=== PATIENT | female | born 1965 | race American Indian/Alaskan Native ===

== ENCOUNTER 2017-07-06 12:39 | Emergency (ER) | payer MEDICARE, OTHER ==
[2017-07-06 12:40] VITALS: BMI 25.7
[2017-07-06 12:50] VITALS: TEMP 98.4
[2017-07-06] MEDS ORDERED: Morphine 2 mg/ml ISec IVP STA (13:23)
[2017-07-06 13:50] LABS: BASO # 0.01 K/mm3 (0.0-2.0); BASO % 0.1 % (0.0-3.0); EOS % 0.2 % (1.5-5.0); GRAN # 11.62 (1.4-6.5); GRAN % 89.6 % (50.0-68.0); LYMPH # 0.9 (1.2-3.4); LYMPH % 7.2 % (22.0-35.0); MEAN CELL VOLUME 102.6 fl (80.0-105.0); MEAN CORPUSCULAR HEMOGLOBIN 32.8 pg (25.0-35.0); MEAN CORPUSCULAR HGB CONC 31.9 g/dl (31.0-37.0); MONO # 0.4 (0.1-0.6); MONO % 2.9 % (1.0-6.0); PLATELET COUNT 77 10^3/uL (120.0-450.0); RBC 3.05 10^6/uL (3.5-6.1); RED CELL DISTRIBUTION WIDTH 18.5 % (11.5-14.5)
[2017-07-06 13:59] LABS: ALB/GLOB RATIO 1.2 (1.1-1.8); ALBUMIN 3.5 g/dL (3.0-4.8); ALT/SGPT 31 U/L (7-56); AST/SGOT 27 U/L (14-36); BLOOD UREA NITROGEN 24 mg/dL (7-21); CALCIUM 8.7 mg/dL (8.4-10.5); GFR AFRICAN-AMERICAN > 60; GFR NON-AFRICAN AMERICAN > 60
[2017-07-06 14:23] LABS: INR 1.26 (0.93-1.08); PARTIAL THROMBOPLASTIN TIME 37.7 Seconds (25.1-36.5); PROTHROMBIN TIME 14.5 SECONDS (9.4-12.5)
[2017-07-06] MEDS ORDERED: Potassium Chloride 20 mEq ER Tab PO STA (14:32)
[2017-07-06] MEDS ORDERED: Gadodiamide 287 MG/ML VIAL (15ML) IV ONE (15:41)
[2017-07-06 18:16] VITALS: BP 134/80; PULSE 76; RESP 18; O2SAT 96
--- NOTE | 2017-07-06 18:21 | MRI ---
PROCEDURE: MRI of the cervical spine dated 07/06/2017 HISTORY: Bone metastasis in a patient with history of breast carcinoma with lesion at C5; rule out cord compression. COMPARISON: Correlation made with standard CT scan performed as part of a PET-CT scan dated 07/05/2017. TECHNIQUE: Multiecho multiplanar sequences were performed through the cervical spine with and without the use of intravenous contrast 15 cc of Omniscan injected for this examination. IMPRESSION: Chronic compression deformity of the C5 segment with mild retropulsion of the posterior cortex. The retropulsed fragments results in mild canal narrowing and focal compression of the ventral surface of the thecal sac and spinal cord. This is likely a pathologic fracture due to an underlying treated metastatic lesion. Note however that there does appear to be mild edema and possibly some enhancement within the lateral margin of this segment and probably the posterior elements with some extension into the paraspinal soft tissues suggesting residual disease. Additionally, there is a sclerotic lesion within the C7 segment as well which eft also appears to exhibit faint contrast enhancement along the are lateral margin and possibly within the adjacent soft tissues. No other on evidence of significant cord compression is identified on this exam. Note that these findings were discussed with Dr. Becerra with written down and read back verification.
--- NOTE | 2017-07-06 20:40 | ED PDOC ---
Arrival/HPI - General Chief Complaint: Headache Time Seen by Provider: 07/06/17 12:47 Historian: Patient, Other (Dr. Ella Mahoney) - History of Present Illness Narrative History of Present Illness (Text): 07/06/17 20:30 Patient is a 52 yo female with history of metastatic breast cancer, presents to the Emergency Department after she was noted to have abnormal PET scan as outpatient that revealed "pathologic C5 cervical fracture" as per Dr. Mahoney, her oncologist. The patient states that she has had headaches chronically but over the past week she has began to experience neck pain that radiates to both shoulders. No trauma. No fever. Denies numbness or tingling or weakness to arms or legs. She denies any incontinence of urine or stool. She denies any difficulty swallowing. Denies fevers. Denies visual symptoms. Patient sent by Dr. Mahoney for MRI of neck for further evaluation of abnormal PET scan. Time/Duration: 1 week Past Medical History - Infectious Disease Hx of Infectious Diseases: None - Reproductive Menopause: Yes - Cardiac Hx Hypertension: Yes - Pulmonary Hx Respiratory Disorders: Yes (lung nodule DUE TO LEFT BREAST CA) - Neurological Hx Neurological Disorder: No Other/Comment: AAOX3 - HEENT Hx HEENT Disorder: No - Renal Hx Renal Disorder: No - Endocrine/Metabolic Hx Endocrine Disorders: No - Hematological/Oncological Hx Blood Disorders: Yes Hx Blood Transfusions: Yes Hx Blood Transfusion Reaction: No Hx Cancer: Yes (breast ca stage 4) Hx Chemotherapy: Yes (LAST CHEMO 12/27/16) - Integumentary Hx Dermatological Disorder: Yes Other/Comment: LEFT BREAST MASTECTOMY - Musculoskeletal/Rheumatological Hx Musculoskeletal Disorders: No Hx Falls: No (DENIES) - Gastrointestinal Hx Gastrointestinal Disorders: No Other/Comment: breast ca and chemo - Genitourinary/Gynecological Hx Genitourinary Disorders: No - Psychiatric Hx Psychophysiologic Disorder: No Hx Substance Use: No - Surgical History Hx Breast Biopsy: Yes Hx Mastectomy: Yes (LEFT MASTECTOMY 2011) Hx Vascular Access Device: Yes (INSERTION AND REMOVAL PORTACATH re insertion) - Anesthesia Hx Anesthesia: Yes Hx Anesthesia Reactions: No Hx Malignant Hyperthermia: No Family/Social History Family/Social History: Unknown Family HX Smoking Status: Never Smoked Hx Alcohol Use: No Hx Substance Use: No Allergies/Home Meds Allergies/Adverse Reactions: Allergies No Known Allergies Allergy (Verified 01/10/17 13:22) Home Medications: Home Meds Medication Instructions Recorded Confirmed Famotidine [Pepcid] 20 mg PO BID 07/06/17 07/06/17 Ondansetron [Zofran] 4 mg PO TID 07/06/17 07/06/17 Review of Systems - Review of Systems Constitutional: absent: Fevers Eyes: absent: Vision Changes Respiratory: absent: SOB Cardiovascular: absent: Chest Pain Gastrointestinal: absent: Abdominal Pain Genitourinary Female: absent: Dysuria Musculoskeletal: Neck Pain. absent: Back Pain Skin: absent: Rash Neurological: Headache. absent: Dizziness, Focal Weakness, Speech Changes, Facial Droop, Disequilibrium Endocrine: absent: Polyuria Hemo/Lymphatic: absent: Easy Bleeding Psychiatric: absent: Depression Physical Exam Vital Signs Reviewed: Yes Vital Signs Temp Pulse Resp BP Pulse Ox 07/06/17 18:00 76 18 134/80 96 07/06/17 12:45 98.4 F 77 16 105/76 100 07/06/17 12:40 98.1 F 72 20 107/68 98 Temperature: Afebrile Appearance: Positive for: Uncomfortable Pain Distress: Moderate - Systems Exam Head: Present: Tenderness. No: Ecchymosis, Laceration Pupils: Present: PERRL Extroacular Muscles: Present: EOMI Mouth: Present: Moist Mucous Membranes Pharnyx: No: ERYTHEMA Nose (Internal): Present: Normal Inspection, No Active Bleeding Neck: Present: Normal Range of Motion, MIDLINE TENDERNESS, Paraspinal Tenderness , Trachea Midline. No: Meningeal Signs, Lymphadenopathy Respiratory/Chest: Present: Clear to Auscultation. No: Respiratory Distress Cardiovascular: Present: Regular Rate and Rhythm Abdomen: No: Distention, Peritoneal Signs Back: No: CVA Tenderness Upper Extremity: No: Cyanosis Lower Extremity: Present: NORMAL PULSES, Neurovascularly Intact. No: Edema Neurological: Present: CN II-XII Intact, Speech Normal, Motor Func Grossly Intact, Normal Sensory Function, Normal Cerebellar Funct, Memory Normal Skin: Present: Warm Psychiatric: Present: Alert, Oriented x 3, Normal Insight, Normal Concentration Medical Decision Making ED Course and Treatment: 07/06/17 20:42 Patient was sent by Dr. Ella Mahoney, her oncologist, who reported to me patient with abnormal PET scan. On exam, patient is neurologically intact, complains of neck pain and headache. IV Morphine administered with resolution of headache and neck pain. Patient sent for MRI, and was re-evaluated upon return. She is comfortable, ambulatory, with no weakness or gait disturbance or acute motor/sensory deficits noted. 07/06/17 20:50 MRI of cervical spine reviewed by radiologist, shows chronic compression deformity of the C5 segment with mild retropulsion of the posterior cortex. The retropulsed fragments results in mild canal narrowing and focal compression of the ventral surface of the thecal sac and spinal cord. This is likely a pathologic fracture due to an underlying treated metastatic lesion. Note however that there does appear to be mild edema and possibly some enhancement within the lateral margin of this segment and probably the posterior elements with some extension into the paraspinal soft tissues suggesting residual disease. Additionally, there is a sclerotic lesion within the C7 segment as well which eft also appears to exhibit faint contrast enhancement along the are lateral margin and possibly within the adjacent soft tissues. No other on evidence of significant cord compression is identified on this exam. Patient with abnormal MRI. I discussed MRI results in laymens terms to patient with RN present as witness, I discussed with her admission to the hospital for evaluation by neurosurgery as well as her oncologist, and recommended patient be admitted for abnormal MRI. Patient states that she needs to go home tonight and wishes to come back to ER tomorrow to be admitted instead. I have strongly advised against this as patient 's MRI with significant abnormalities. I have stated to her multiple times abnormal findings and risk of paralysis, , disability, pain. She is able to repeat back these risks with RN witness present. I have advised patient that she will be leaving hospital against medical advice , and she states she understands this and will return tomorrow. Patient signed out AMA. I communicated with her oncologist, Dr. Pena, who is aware of MRI findings. He has also suggested that patient be admitted, although he is aware that patient has signed out against medical advice. 07/06/17 20:50 Leaving Against Medical Advice (AMA): The patient is choosing to leave against medical advice. I have personally explained to the patient that choosing to do so may result in permanent bodily harm or . I have discussed at great length that without further evaluation and monitoring there may be unforeseen circumstances and/or deterioration causing permanent bodily harm or as a result of their choice. The patient is alert, oriented, and shows the mental capacity to make clear decisions regarding the patients health care at this time. The patient continues to wish to leave against medical advice. In light of the patients decision to leave against medical advice, follow-up has been arranged and the patient is aware of the importance to following up as instructed. The patient has been advised that they should return to the emergency room immediately if they change their mind at any time, or if their condition begins to change or worsen in any way. - Lab Interpretations Lab Results: 07/06/17 13:15 07/06/17 13:15 Lab Results 07/06/17 13:15: Sodium 142, Potassium 3.4 L, Chloride 107, Carbon Dioxide 25, Anion Gap 13, BUN 24 H, Creatinine 0.7, Est GFR ( Amer) > 60, Est GFR ( Non-Af Amer) > 60, Random Glucose 92, Calcium 8.7, Total Bilirubin 0.5, AST 27, ALT 31, Alkaline Phosphatase 79, Total Protein 6.4, Albumin 3.5, Globulin 2.9, Albumin/Globulin Ratio 1.2 07/06/17 13:15: PT 14.5 H, INR 1.26 H, APTT 37.7 H 07/06/17 13:15: WBC 13.0 H D, RBC 3.05 L, Hgb 10.0 L, Hct 31.3 L, MCV 102.6, MCH 32.8, MCHC 31.9, RDW 18.5 H, Plt Count 77 L, Gran % 89.6 H, Lymph % (Auto) 7.2 L, [place] % (Auto) 2.9, Eos % (Auto) 0.2 L, Baso % (Auto) 0.1, Gran # 11.62 H , Lymph # 0.9 L, [place] # 0.4, Eos # 0.0, Baso # 0.01 - RAD Interpretation Radiology Orders: 07/06/17 13:14 SPINAL CANAL CERVICAL W/WO RENUKA [MRI] Stat - Medication Orders Current Medication Orders: Discontinued Medications Morphine Sulfate (Morphine) 2 mg IVP STAT STA Stop: 07/06/17 13:24 Last Admin: 07/06/17 13:30 Dose: 2 mg MAR Pain Assessment Document 07/06/17 13:30 SRE (Rec: 07/06/17 13:35 SRE [id number]) Pain Reassessment Is this a pain reassessment? Yes Sleep Is patient sleeping during reassessment? No Presence of Pain Presence of Pain Yes Pain Scale Used Pain Scale Used Numeric Location Left, Right or Bilateral Bilateral Pain Location Body Site Neck Arm Description Description Sharp IVP Administration Document 07/06/17 13:30 SRE (Rec: 07/06/17 13:35 SRE [id number]) Charges for Administration # of IVP Administrations 1 Re-Assess: MAR Pain Assessment Document 07/06/17 14:30 SRE (Rec: 07/06/17 14:36 SRE [id number]) Pain Reassessment Is this a pain reassessment? Yes Sleep Is patient sleeping during reassessment? No Presence of Pain Presence of Pain Yes Pain Scale Used Pain Scale Used Numeric Location Left, Right or Bilateral Bilateral Pain Location Body Site Arm Description Description Intermittent Potassium Chloride (K-Dur 20 Meq Er Tab) 20 meq PO STAT STA Stop: 07/06/17 14:33 Last Admin: 07/06/17 14:41 Dose: 20 meq Disposition/Present on Arrival - Present on Arrival Any Indicators Present on Arrival: No History of DVT/PE: No History of Uncontrolled Diabetes: No Urinary Catheter: No History of Decub. Ulcer: No History Surgical Site Infection Following: None - Disposition Have Diagnosis and Disposition been Completed?: Yes Diagnosis: Abnormal MRI, cervical spine, Metastatic cancer, Neck pain Disposition: AGAINST MEDICAL ADVICE Disposition Time: 18:00 Patient Plan: Discharge Condition: GOOD Referrals: Rupert Lopez MD [Primary Care Provider] - Follow up with primary Forms: Celect (Hungarian)
== END 2017-07-06 18:48 | disposition left against medical advice (07) ==
LOC: ED 12:39
DX: R94.8 Abnormal results of function studies of other organs and systems (principal); C79.51 Secondary malignant neoplasm of bone; M54.2 Cervicalgia

== ENCOUNTER 2017-07-07 11:49 | Inpatient (IN) | payer MEDICARE, OTHER ==
--- NOTE | 2017-07-07 12:15 | ED PDOC ---
Arrival/HPI - General Chief Complaint: Flu-like Symptoms Time Seen by Provider: 07/07/17 12:14 Historian: Patient - History of Present Illness Narrative History of Present Illness (Text): 07/07/17 12:15 52 y/o female, pmh including breast cancer/anemia with thrombocytopenia/htn, nkda, post menopausal, c/o for admission for her pathological fracture on the C5. Pt. has metastatic breast cancer and following with Dr. Mahoney and Dr. Pena , been having neck pain since 01/2017 with no fall or trauma, currently getting chemotherapy for her breast cancer, send by Dr. Mahoney yesterday due for the MRI of the cervical spine which noted that she has chronic compression deformity of the C5 segment with mild retropulsion of the posterior cortex and mild edema ( decadron 10mg IV ordered), advised to be admitted yesterday but she declined so she is here today for the follow up to be admitted. Pt. stated that she has neck pain which radiating to the bilateral upper extremities with no numbness or tingling which this has been started since 01/2017, no weakness either. Pt. has no headache or any other fall or trauma. Pt. has no fever or chills, no chest pain or shortness of breath, no palpitation, no other medical or psychological complaints. Past Medical History - Provider Review Nursing Documentation Reviewed: Yes - Infectious Disease Hx of Infectious Diseases: None - Cardiac Hx Cardiac Disorders: Yes Hx Hypertension: Yes - Pulmonary Hx Respiratory Disorders: Yes (lung nodule DUE TO LEFT BREAST CA) - Neurological Hx Neurological Disorder: No Other/Comment: AAOX3 - HEENT Hx HEENT Disorder: No - Renal Hx Renal Disorder: No - Endocrine/Metabolic Hx Endocrine Disorders: No - Hematological/Oncological Hx Blood Disorders: Yes Hx Blood Transfusions: Yes Hx Blood Transfusion Reaction: No Hx Cancer: Yes (breast ca stage 4) Hx Chemotherapy: Yes (LAST CHEMO 07/04/17) - Integumentary Hx Dermatological Disorder: Yes Other/Comment: LEFT BREAST MASTECTOMY - Musculoskeletal/Rheumatological Hx Musculoskeletal Disorders: No Hx Falls: No (DENIES) - Gastrointestinal Hx Gastrointestinal Disorders: No Other/Comment: breast ca and chemo - Genitourinary/Gynecological Hx Genitourinary Disorders: No - Psychiatric Hx Psychophysiologic Disorder: No Hx Substance Use: No - Surgical History Hx Breast Biopsy: Yes Hx Mastectomy: Yes (LEFT MASTECTOMY 2011) Hx Vascular Access Device: Yes Other/Comment: R sided port. - Anesthesia Hx Anesthesia: Yes Hx Anesthesia Reactions: No Hx Malignant Hyperthermia: No Family/Social History - Physician Review Nursing Documentation Reviewed: Yes Family/Social History: Unknown Family HX Smoking Status: Never Smoked Hx Alcohol Use: No Hx Substance Use: No Allergies/Home Meds Allergies/Adverse Reactions: Allergies No Known Allergies Allergy (Verified 07/07/17 12:00) Home Medications: Home Meds Medication Instructions Recorded Confirmed Famotidine [Pepcid] 20 mg PO BID 07/06/17 07/07/17 Ondansetron [Zofran] 4 mg PO TID 07/06/17 07/07/17 Review of Systems - Review of Systems Constitutional: absent: Fatigue, Fevers Eyes: absent: Vision Changes ENT: absent: Hearing Changes Respiratory: absent: SOB, Cough Cardiovascular: absent: Chest Pain Gastrointestinal: absent: Abdominal Pain, Diarrhea, Nausea, Vomiting Musculoskeletal: Neck Pain. absent: Arthralgias, Back Pain, Myalgias Skin: absent: Rash, Pruritis Neurological: absent: Headache, Dizziness Psychiatric: absent: Anxiety, Depression, Suicidal Ideation Physical Exam Vital Signs Reviewed: Yes Vital Signs Pulse Resp BP Pulse Ox 07/07/17 12:05 69 17 147/81 97 Blood Pressure: Normal Pulse: Regular Respiratory Rate: Normal Appearance: Positive for: Well-Appearing, Non-Toxic, Comfortable Pain Distress: Severe Mental Status: Positive for: Alert and Oriented X 3 - Systems Exam Head: Present: Atraumatic, Normocephalic Pupils: Present: PERRL Extroacular Muscles: Present: EOMI Conjunctiva: Present: Normal Mouth: Present: Moist Mucous Membranes Nose (Internal): Present: Normal Inspection, No Active Bleeding. No: Rhinorrhea Neck: Present: Normal Range of Motion, Trachea Midline. No: Meningeal Signs, MIDLINE TENDERNESS, Paraspinal Tenderness, Lymphadenopathy Respiratory/Chest: Present: Clear to Auscultation, Good Air Exchange. No: Respiratory Distress, Accessory Muscle Use Cardiovascular: Present: Regular Rate and Rhythm, Normal S1, S2. No: Murmurs Abdomen: Present: Normal Bowel Sounds. No: Tenderness, Distention, Peritoneal Signs Back: Present: Normal Inspection Upper Extremity: Present: Normal Inspection, Normal ROM, NORMAL PULSES, Neurovascularly Intact, Capillary Refill < 2s. No: Cyanosis, Edema, Deformity Lower Extremity: Present: Normal Inspection, Normal ROM. No: Edema, Deformity Neurological: Present: GCS=15, CN II-XII Intact, Speech Normal, Motor Func Grossly Intact, Gait Normal, Memory Normal, Other (Bilateral upper and lower extremities with motor 5/5 and full sensation intact, no focal neurological deficits. ) Skin: Present: Warm, Dry, Normal Color. No: Rashes Psychiatric: Present: Alert, Oriented x 3, Normal Insight, Normal Concentration Medical Decision Making ED Course and Treatment: 07/07/17 13:34 -Labs -IV decadrone and morphine -Chest xray -Will need admission for work up -Case discussed with Dr. Roldan and reviewed the MRI cervical together which he suggest no emergent neurosurgery consult indicated at this time but will need inpatient consult. 07/07/17 14:22 -Labs are non-significant compared to previous labs, pancytopenia, K+ 3.2 with potassium chloride 20meq po ordered. -Cervical collar ordered (for supportive care if needed) with decadron 10mg IM ordered -Pt. will need admission for further evaluation and work up for this pathological fracture, paging the hospitalist for admission. 07/07/17 14:38 -Pt. has no focal neurological deficits, other than the pain chronic. -I spoke to the hospitalist Dr. Butt and discussed the case in detail, agreed on the admission and agreed this patient will need neurosurgery routine consult. -Dr. Roldan will put in the admission order as I discussed the case with him. - Lab Interpretations Lab Results: 07/07/17 13:00 07/07/17 13:00 Lab Results 07/07/17 13:34: Urine Color Yellow, Urine Appearance Clear, Urine pH 6.0, Ur Specific O[place]Brien 1.020, Urine Protein Negative, Urine Glucose (UA) Negative, Urine Ketones Trace H, Urine Blood Negative, Urine Nitrate Negative, Urine Bilirubin Negative, Urine Urobilinogen 0.2, Ur Leukocyte Esterase Negative 07/07/17 13:00: WBC 7.3 D, RBC 3.34 L, Hgb 11.0 L, Hct 34.6 L, MCV 103.6, MCH 32.9, MCHC 31.8, RDW 18.6 H, Plt Count 96 L, Gran % 87.2 H, Lymph % (Auto) 10.6 L, [place] % (Auto) 1.4, Eos % (Auto) 0.5 L, Baso % (Auto) 0.3, Gran # 6.35, Lymph # 0.8 L, [place] # 0.1, Eos # 0.0, Baso # 0.02 07/07/17 13:00: Sodium 142, Potassium 3.2 L, Chloride 105, Carbon Dioxide 28, Anion Gap 12, BUN 16, Creatinine 0.6 L, Est GFR ( Amer) > 60, Est GFR ( Non-Af Amer) > 60, Random Glucose 113 H, Calcium 9.7, Total Bilirubin 0.8, AST 34, ALT 30, Alkaline Phosphatase 107, Total Protein 7.7, Albumin 4.3, Globulin 3.3, Albumin/Globulin Ratio 1.3 07/07/17 13:00: PT 14.3 H, INR 1.24 H, APTT 25.7 - RAD Interpretation Radiology Orders: 07/07/17 12:54 CHEST PORTABLE [RAD] Stat no active disease Peoplesoft Consultant: Radiologist - Medication Orders Current Medication Orders: Amlodipine Besylate (Norvasc) 5 mg PO DAILY [facility] Last Admin: 07/08/17 09:28 Dose: 5 mg MAR Pulse and Blood Pressure Document 07/08/17 09:28 VS (Rec: 07/08/17 09:29 VS [id number]) Pulse Pulse Rate (60-90) 70 Blood Pressure Blood Pressure (100/60-150/90) 121/78 Dexamethasone (Decadron Inj) 4 mg IVP Q6H [facility] Last Admin: 07/09/17 05:10 Dose: 4 mg IVP Administration Document 07/09/17 05:10 AJP (Rec: 07/09/17 05:10 AJP [id number]) Charges for Administration # of IVP Administrations 1 Enoxaparin Sodium (Lovenox) 40 mg SC DAILY [facility] PRN Reason: Protocol Last Admin: 07/08/17 09:27 Dose: 40 mg Subcutaneous Administrations Document 07/08/17 09:27 VS (Rec: 07/08/17 09:28 VS [id number]) Injection Site MAR Injection Site Left Abdomen Charges for Administration # of Subcutaneous Administrations 1 Morphine Sulfate (Morphine) 2 mg IVP Q4H PRN PRN Reason: Pain, severe (8-10) Last Admin: 07/08/17 19:12 Dose: 2 mg [facility] Pain Assessment Document 07/08/17 19:12 VS (Rec: 07/08/17 19:13 VS [id number]) Pain Reassessment Is this a pain reassessment? No Pain Scale Used Pain Scale Used Numeric Location Pain Location Body Site Neck Description Description Constant Intensity of Pain at present 9 Pain Behavior Facial Grimacing Aggravating Factors None Alleviating Factors/Management Medication Techniques IVP Administration Document 07/08/17 19:12 VS (Rec: 07/08/17 19:13 VS [id number]) Charges for Administration # of IVP Administrations 1 Ondansetron HCl (Zofran Inj) 4 mg IVP Q6H PRN PRN Reason: Nausea/Vomiting Pantoprazole Sodium (Protonix Ec Tab) 40 mg PO 0600 DONG Last Admin: 07/09/17 05:12 Dose: 40 mg Discontinued Medications Dexamethasone (Decadron Inj) 10 mg IVP ONCE ONE Stop: 07/07/17 13:29 Last Admin: 07/07/17 13:44 Dose: 10 mg IVP Administration Document 07/07/17 13:44 EQ (Rec: 07/07/17 13:44 EQ [facility] [id number]) Charges for Administration # of IVP Administrations 1 Morphine Sulfate (Morphine) 4 mg IVP STAT STA Stop: 07/07/17 13:34 Last Admin: 07/07/17 13:44 Dose: 4 mg [facility] Pain Assessment Document 07/07/17 13:44 EQ (Rec: 07/07/17 13:44 EQ [facility] [id number]) Pain Reassessment Is this a pain reassessment? No Sleep Is patient sleeping during reassessment? No Presence of Pain Presence of Pain Yes IVP Administration Document 07/07/17 13:44 EQ (Rec: 07/07/17 13:44 EQ [facility] [id number]) Charges for Administration # of IVP Administrations 1 Re-Assess: MAR Pain Assessment Document 07/07/17 14:44 VS (Rec: 07/07/17 16:35 VS [id number]) Pain Reassessment Is this a pain reassessment? Yes Sleep Is patient sleeping during reassessment? No Presence of Pain Presence of Pain No Pain Scale Used Pain Scale Used Numeric Potassium Chloride (K-Dur 20 Meq Er Tab) 20 meq PO STAT STA Stop: 07/07/17 13:37 Last Admin: 07/07/17 15:45 Dose: 20 meq Potassium Chloride (Potassium Chloride Oral Soln) 40 meq PO STAT STA Stop: 07/07/17 16:08 Last Admin: 07/07/17 17:04 Dose: 40 meq - PA / PERIANESTHESIA RN / Resident Statement MD/DO has reviewed & agrees with the documentation as recorded. Disposition/Present on Arrival - Present on Arrival Any Indicators Present on Arrival: No History of DVT/PE: No History of Uncontrolled Diabetes: No Urinary Catheter: No History of Decub. Ulcer: No History Surgical Site Infection Following: None - Disposition Have Diagnosis and Disposition been Completed?: Yes Diagnosis: Pancytopenia, Metastatic cancer, Pathological fracture Disposition: HOSPITALIZED Disposition Time: 13:36 Patient Plan: Admission Patient Problems: Current Active Problems Problem Status Onset Pancytopenia Acute Metastatic cancer Acute Pathological fracture Acute Condition: STABLE
[2017-07-07 13:13] LABS: BASO # 0.02 K/mm3 (0.0-2.0); BASO % 0.3 % (0.0-3.0); EOS % 0.5 % (1.5-5.0); GRAN # 6.35 (1.4-6.5); GRAN % 87.2 % (50.0-68.0); LYMPH # 0.8 (1.2-3.4); LYMPH % 10.6 % (22.0-35.0); MEAN CELL VOLUME 103.6 fl (80.0-105.0); MEAN CORPUSCULAR HEMOGLOBIN 32.9 pg (25.0-35.0); MEAN CORPUSCULAR HGB CONC 31.8 g/dl (31.0-37.0); MONO # 0.1 (0.1-0.6); MONO % 1.4 % (1.0-6.0); PLATELET COUNT 96 10^3/uL (120.0-450.0); RBC 3.34 10^6/uL (3.5-6.1); RED CELL DISTRIBUTION WIDTH 18.6 % (11.5-14.5); WHITE BLOOD COUNT 7.3 10^3/ul (4.5-11.0)
[2017-07-07 13:24] LABS: INR 1.24 (0.93-1.08); PARTIAL THROMBOPLASTIN TIME 25.7 Seconds (25.1-36.5); PROTHROMBIN TIME 14.3 SECONDS (9.4-12.5)
[2017-07-07] MEDS ORDERED: Morphine 4 mg/ml ISec IVP STA (13:33)
[2017-07-07 13:35] LABS: ALB/GLOB RATIO 1.3 (1.1-1.8); ALBUMIN 4.3 g/dL (3.0-4.8); ALT/SGPT 30 U/L (7-56); AST/SGOT 34 U/L (14-36); BLOOD UREA NITROGEN 16 mg/dL (7-21); CALCIUM 9.7 mg/dL (8.4-10.5); GFR AFRICAN-AMERICAN > 60; GFR NON-AFRICAN AMERICAN > 60
[2017-07-07] MEDS ORDERED: Potassium Chloride 20 mEq ER Tab PO STA (13:36)
[2017-07-07 13:37] LABS: URINE BILIRUBIN NEGATIVE (NEGATIVE); URINE BLOOD NEGATIVE (NEGATIVE); URINE GLUCOSE (UA) NEGATIVE (NEGATIVE); URINE LEUKOCYTE ESTERASE NEGATIVE Leu/uL (NEGATIVE); URINE NITRATE NEGATIVE (NEGATIVE); URINE PROTEIN NEGATIVE mg/dL (<30 mg/dL); URINE UROBILINOGEN 0.2 E.U./dL (<1 E.U./dL)
[2017-07-07 13:54] LABS: URINE APPEARANCE CLEAR (CLEAR); URINE COLOR YELLOW (YELLOW)
--- NOTE | 2017-07-07 15:28 | RAD ---
HISTORY: medical clearance COMPARISON: 10/16/2013 FINDINGS: LUNGS: No active pulmonary disease. PLEURA: No significant pleural effusion identified, no pneumothorax apparent. CARDIOVASCULAR: Normal. OSSEOUS STRUCTURES: No significant abnormalities. VISUALIZED UPPER ABDOMEN: Normal. OTHER FINDINGS: Right-sided Port-A-Cath IMPRESSION: No active disease.
[2017-07-07] MEDS ORDERED: Potassium Chloride 40 mEq/30 ml LIQ UD PO STA (16:07)
--- NOTE | 2017-07-07 16:28 | CP.PCM.HP ---
<Milo Wagner - Last Filed: 07/07/17 16:29> History of Present Illness - History of Present Illness History of Present Illness: CC: Neck pain / Abnormal Imaging 52 y/o female with pmh of mets breast cancer, htn presents following recs from her rad/onc doctor for admission for abnormal imaging of MRI. Pt states that she has metastatic breast cancer and has been following with Dr. Mahoney and Dr. Pena for chemo and radiation. Last chemo was 3 days and and radiation was aprox 6 weeks ago. Pt has been complain of neck pain with radiation to her b/l arms for the past few months but denies any pain right now. Denies any weakness or loss of sensation. Pt came to the ED yesterday and had an MRI done chronic compression deformity of the C5 segment with mild retropulsion of the posterior cortex. Pt ended up signing out AMA. Pt currently denies any neck pain. Pt does complain of back pain that is 8/10 in severity non radiating. Denies any recent falls, or loss of consciousness. 12 Point ROS performed and negative other than stated above. PMH: mets breast ca (2011), HTN PSH: L mastectomy Med: refer to [facility] ALL: NKA SH: denies any etoh, smoking, drugs FH: Denies Present on Admission - Present on Admission Any Indicators Present on Admission: No Review of Systems - Review of Systems All systems: reviewed and no additional remarkable complaints except Past Patient History - Infectious Disease Hx of Infectious Diseases: None - Past Medical History & Family History Past Medical History?: Yes - Past Social History Smoking Status: Never Smoked - CARDIAC Hx Cardiac Disorders: Yes Hx Hypertension: Yes - PULMONARY Hx Respiratory Disorders: Yes (lung nodule DUE TO LEFT BREAST CA) - NEUROLOGICAL Hx Neurological Disorder: No Other/Comment: AAOX3 - HEENT Hx HEENT Problems: No - RENAL Hx Chronic Kidney Disease: No - ENDOCRINE/METABOLIC Hx Endocrine Disorders: No - HEMATOLOGICAL/ONCOLOGICAL Hx Blood Disorders: Yes Hx Blood Transfusions: Yes Hx Blood Transfusion Reaction: No Hx Cancer: Yes (breast ca stage 4) Hx Chemotherapy: Yes (LAST CHEMO 07/04/17) - INTEGUMENTARY Hx Dermatological Problems: Yes Other/Comment: LEFT BREAST MASTECTOMY - MUSCULOSKELETAL/RHEUMATOLOGICAL Hx Musculoskeletal Disorders: No Hx Falls: No (DENIES) - GASTROINTESTINAL Hx Gastrointestinal Disorders: No Other/Comment: breast ca and chemo - GENITOURINARY/GYNECOLOGICAL Hx Genitourinary Disorders: No - PSYCHIATRIC Hx Psychophysiologic Disorder: No Hx Substance Use: No - SURGICAL HISTORY Hx Breast Biopsy: Yes Hx Mastectomy: Yes (LEFT MASTECTOMY 2011) Hx Vascular Access Device: Yes Other/Comment: R sided port. - ANESTHESIA Hx Anesthesia: Yes Hx Anesthesia Reactions: No Hx Malignant Hyperthermia: No Meds Allergies/Adverse Reactions: Allergies Allergy/AdvReac Type Severity Reaction Status Date / Time No Known Allergies Allergy Verified 07/07/17 12:00 Physical Exam - Constitutional Appears: No Acute Distress - Head Exam Head Exam: ATRAUMATIC, NORMOCEPHALIC - Eye Exam Eye Exam: EOMI Pupil Exam: NORMAL ACCOMODATION - ENT Exam ENT Exam: Mucous Membranes Moist - Neck Exam Neck exam: Positive for: Full Rom, Normal Inspection. Negative for: Tenderness - Respiratory Exam Respiratory Exam: Clear to Auscultation Bilateral. absent: Wheezes - Cardiovascular Exam Cardiovascular Exam: REGULAR RHYTHM, RRR, +S1, +S2 - GI/Abdominal Exam GI & Abdominal Exam: Normal Bowel Sounds, Soft - Extremities Exam Extremities exam: Negative for: calf tenderness, pedal edema Additional comments: Upper Ext: FROM, Sensation intact - Back Exam Back exam: absent: paraspinal tenderness, vertebral tenderness - Neurological Exam Neurological exam: Alert, Oriented x3 - Skin Skin Exam: Dry, Intact, Warm Results - Vital Signs Recent Vital Signs: Last Vital Signs Temp Pulse 68 07/07/17 15:46 Resp 18 07/07/17 15:46 BP 143/80 07/07/17 15:46 Pulse Ox 100 07/07/17 15:46 - Labs Result Diagrams: 07/07/17 13:00 07/07/17 13:00 Assessment & Plan - Assessment and Plan (Free Text) Assessment: 52 y/o female with pmh of mets breast cancer, htn presents following recs from her rad/onc doctor for admission for Abnormal imaging of neck MRI - chronic compression deformity of the C5 segment with mild retropulsion of the posterior cortex with mild edema. The retropulsed fragments results in mild canal narrowing and focal compression of the ventral surface of the thecal sac and spinal cord. 1. Mets breast ca with pathologic fx of C5 - MRI and Pet CT scan reviewed - Pain control with Morphine - Decadrom 4mg Q6H - Zofran for nausea - Heme/onc - Dr Pena Consulted for recs - Rad/Onc - Dr Mahoney Consulted for recs - Neuro sx consulted for recs - Heart healthy diet - AM labs - Cervical collar encouraged - Explained to the pt in detail to no have any sudden movement of her neck and encourgaed her to wear the neck brace. Explained in length of any new symptoms to contact nurse and physician right away. Pt verbalized understanding. 2. HTN - Cont home Amlodipine 3. GI/DVT ppx - Protonix and Lovenox sc Pt was seen, reviewed and discussed in detail with Dr Butt <Gloria Butt - Last Filed: 07/08/17 11:50> Results - Vital Signs Recent Vital Signs: Last Vital Signs Temp 97.6 F 07/08/17 07:47 Pulse 70 07/08/17 09:28 Resp 18 07/08/17 07:47 BP 121/78 07/08/17 09:28 Pulse Ox 100 07/08/17 07:47 - Labs Result Diagrams: 07/07/17 13:00 07/07/17 13:00 Attending/Attestation - Attestation I have personally seen and examined this patient.: Yes I have fully participated in the care of the patient.: Yes I have reviewed all pertinent clinical information: Yes Notes (Text): 07/08/17 11:45 Attending note; Patient seen and examined with the resident. Patient is a 52-year-old female with past medical history of metastatic breast cancer, hypertension is admitted with neck pain. The patient had chronic neck pain since January. Recent MRI showed compression fraction of C5. Recent PET scan showed metastatic disease including brain. The patient got palliative radiation to the hip and shoulder. Currently admitted for pain management and IV Decadron. Currently no arm weakness or numbness. But patient has generalized pain. Also complaining of mild neck pain. Pain is adequately treated with IV morphine now. Follow-up with radiation oncology Dr. Mahoney for the need for palliative radiation . Follow-up with oncology Dr. Pena. Neurosurgery evaluation requested. We will follow up with intervention radiology. The diagnosis and treatment option explained to the patient in detail.
[2017-07-07] MEDS: Dexamethasone 4 mg/1 ml IVP SCH ×2 (17:03→22:05)
[2017-07-07] MEDS: Enoxaparin 40 mg Syringe SC SCH (17:04)
[2017-07-07] MEDS: Morphine 2 mg/ml ISec IVP PRN ×2 (17:36→22:04)
[2017-07-07 17:41] VITALS: BMI 27.1
[2017-07-07] MEDS ORDERED: Influenza Vaccine 60 mcg/0.5 mL SYR (4YR UP) IM ONE (17:41)
--- NOTE | 2017-07-07 22:36 | CP.PCM.CON ---
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 The patient was initially diagnosed with a localized breast cancer in 2011 but unfortunately was found to have lung metastasis in 2013. She had been seen in the office recently and complaining of worsening neck pain which led to her recent imaging. She denies weakness and paresthesias in her extremities. Past medical history: Stage IV breast cancer Past surgical history: Portacath placement Family history: Denies hematologic and oncologic problems Social history: Denies tobacco, alcohol, and illicit drug use. Allergies: NKA Review of systems: All remaining review of systems including HEENT, cardiovascular, respiratory, gastrointestinal, genitourinary, musculoskeletal, dermatologic, neurologic, and psychiatric are negative unless mentioned in the HPI. Past Patient History - Infectious Disease Hx of Infectious Diseases: None - Past Medical History & Family History Past Medical History?: Yes - Past Social History Smoking Status: Never Smoked - CARDIAC Hx Cardiac Disorders: Yes Hx Hypertension: Yes - PULMONARY Hx Respiratory Disorders: Yes Other/Comment: lung bx r lower lobe, right lower lobectomy 04/07/2014 - NEUROLOGICAL Other/Comment: AAOX3 - HEENT Hx HEENT Problems: No - RENAL Hx Chronic Kidney Disease: No - ENDOCRINE/METABOLIC Hx Endocrine Disorders: No - HEMATOLOGICAL/ONCOLOGICAL Hx Blood Disorders: Yes (thrombocytopenia/neutropenia) Hx Anemia: Yes (blood transfusions) Hx Cancer: Yes (breast ca stage 4) Hx Chemotherapy: Yes (LAST CHEMO 07/04/17) Other/Comment: pt dx with left breast ca 2010 had left mastectomy 06/2011 has had chemo on and off since 2011 last chemo 07/04/17, pt had radiation in january 2017 and mar 2017. pt dx with r lunc ca 2013 and recently bone mets lesion on c5 recent mri show brain lesions - INTEGUMENTARY Hx Dermatological Problems: Yes Other/Comment: LEFT BREAST MASTECTOMY - MUSCULOSKELETAL/RHEUMATOLOGICAL Hx Falls: No - GASTROINTESTINAL Hx Gastrointestinal Disorders: Yes (weight loss) Other/Comment: breast ca and chemo - GENITOURINARY/GYNECOLOGICAL Hx Genitourinary Disorders: Yes - PSYCHIATRIC Hx Substance Use: No - SURGICAL HISTORY Hx Mastectomy: Yes (LEFT MASTECTOMY 2011) Other/Comment: R sided port, left breast mastectomy, r lung bx, right lower lobe lobectomy 04/07/2014 - ANESTHESIA Hx Anesthesia: Yes Hx Anesthesia Reactions: No Hx Malignant Hyperthermia: No Meds Allergies/Adverse Reactions: Allergies Allergy/AdvReac Type Severity Reaction Status Date / Time No Known Allergies Allergy Verified 07/07/17 12:00 - Medications Medications: Current Medications Amlodipine Besylate (Norvasc) 5 mg PO DAILY [facility] Last Admin: 07/07/17 17:04 Dose: 5 mg Dexamethasone (Decadron Inj) 4 mg IVP Q6H [facility] Last Admin: 07/07/17 22:05 Dose: 4 mg Enoxaparin Sodium (Lovenox) 40 mg SC DAILY [facility] PRN Reason: Protocol Last Admin: 07/07/17 17:04 Dose: 40 mg Morphine Sulfate (Morphine) 2 mg IVP Q4H PRN PRN Reason: Pain, severe (8-10) Last Admin: 07/07/17 22:04 Dose: 2 mg Ondansetron HCl (Zofran Inj) 4 mg IVP Q6H PRN PRN Reason: Nausea/Vomiting Pantoprazole Sodium (Protonix Ec Tab) 40 mg PO 0600 [facility] Results - Vital Signs Recent Vital Signs: Last Vital Signs Temp 97.8 F 07/07/17 17:31 Pulse 58 L 07/07/17 17:31 Resp 18 07/07/17 17:31 BP 127/83 07/07/17 17:31 Pulse Ox 98 07/07/17 16:00 - Labs Result Diagrams: 07/07/17 13:00 07/07/17 13:00 Assessment & Plan (1) Pathological fracture Assessment and Plan: recommend neurosurgical evaluation ? need for surgery recommend IR evaluation ?kyphoplasty will discuss with rad onc Dr. Mahoney if would benefit from palliative radiotherapy outpatient bisphosphonate Status: Acute (2) Thrombocytopenia Assessment and Plan: secondary to recent chemotherapy Status: Acute (3) Anemia Assessment and Plan: chronic disease and recent chemo Status: Acute (4) Breast cancer Assessment and Plan: lung, brain, bone, lymph node metastasis outpatient treatment Thank you for this interesting consult. Status: Chronic
[2017-07-08] MEDS: Dexamethasone 4 mg/1 ml IVP SCH ×4 (04:22→22:08)
[2017-07-08] MEDS: Pantoprazole 40 mg EC Tab PO SCH (05:33)
--- NOTE | 2017-07-08 09:17 | CP.PCM.CON ---
History of Present Illness - History of Present Illness History of Present Illness: Ms Kennedy is a 52 year old female who is well known to our department. She recently had palliative radiation to the hip and right shoulder. More recently , she had increasing pain of the neck as well as shoulders. She had a CT/PET scan which was significant for a compression fracture at C5 as well as a sclerotic focus at C7. There were other metastases on the PET, however it was felt that the C5 lesion was the etiology of her symptoms. Given the compression fracture, we spoke on Sunday with Dr Pena. We sent her to the emergency room for a MRI which she had that confirmed the fracture. Review of Systems - Musculoskeletal Additional comments: neck and shoulder pain Past Patient History - Infectious Disease Hx of Infectious Diseases: None - Past Medical History & Family History Past Medical History?: Yes - Past Social History Smoking Status: Never Smoked - CARDIAC Hx Cardiac Disorders: Yes Hx Hypertension: Yes - PULMONARY Hx Respiratory Disorders: Yes Other/Comment: lung bx r lower lobe, right lower lobectomy 04/07/2014 - NEUROLOGICAL Other/Comment: AAOX3 - HEENT Hx HEENT Problems: No - RENAL Hx Chronic Kidney Disease: No - ENDOCRINE/METABOLIC Hx Endocrine Disorders: No - HEMATOLOGICAL/ONCOLOGICAL Hx Blood Disorders: Yes (thrombocytopenia/neutropenia) Hx Anemia: Yes (blood transfusions) Hx Cancer: Yes (breast ca stage 4) Hx Chemotherapy: Yes (LAST CHEMO 07/04/17) Other/Comment: pt dx with left breast ca 2010 had left mastectomy 06/2011 has had chemo on and off since 2011 last chemo 07/04/17, pt had radiation in january 2017 and mar 2017. pt dx with r lunc ca 2013 and recently bone mets lesion on c5 recent mri show brain lesions - INTEGUMENTARY Hx Dermatological Problems: Yes Other/Comment: LEFT BREAST MASTECTOMY - MUSCULOSKELETAL/RHEUMATOLOGICAL Hx Falls: No - GASTROINTESTINAL Hx Gastrointestinal Disorders: Yes (weight loss) Other/Comment: breast ca and chemo - GENITOURINARY/GYNECOLOGICAL Hx Genitourinary Disorders: Yes - PSYCHIATRIC Hx Substance Use: No - SURGICAL HISTORY Hx Mastectomy: Yes (LEFT MASTECTOMY 2011) Other/Comment: R sided port, left breast mastectomy, r lung bx, right lower lobe lobectomy 04/07/2014 - ANESTHESIA Hx Anesthesia: Yes Hx Anesthesia Reactions: No Hx Malignant Hyperthermia: No Meds Allergies/Adverse Reactions: Allergies Allergy/AdvReac Type Severity Reaction Status Date / Time No Known Allergies Allergy Verified 07/07/17 12:00 - Medications Medications: Current Medications Amlodipine Besylate (Norvasc) 5 mg PO DAILY [facility] Last Admin: 07/07/17 17:04 Dose: 5 mg Dexamethasone (Decadron Inj) 4 mg IVP Q6H [facility] Last Admin: 07/08/17 04:22 Dose: 4 mg Enoxaparin Sodium (Lovenox) 40 mg SC DAILY [facility] PRN Reason: Protocol Last Admin: 07/07/17 17:04 Dose: 40 mg Morphine Sulfate (Morphine) 2 mg IVP Q4H PRN PRN Reason: Pain, severe (8-10) Last Admin: 07/07/17 22:04 Dose: 2 mg Ondansetron HCl (Zofran Inj) 4 mg IVP Q6H PRN PRN Reason: Nausea/Vomiting Pantoprazole Sodium (Protonix Ec Tab) 40 mg PO 0600 [facility] Last Admin: 07/08/17 05:33 Dose: 40 mg Results - Vital Signs Recent Vital Signs: Last Vital Signs Temp 97.6 F 07/08/17 07:47 Pulse 54 L 07/08/17 07:47 Resp 18 07/08/17 07:47 BP 106/67 07/08/17 07:47 Pulse Ox 100 07/08/17 07:47 - Labs Result Diagrams: 07/07/17 13:00 07/07/17 13:00 Assessment & Plan - Assessment and Plan (Free Text) Assessment: Ms Kennedy is a 52 year old female with metastatic breast cancer and new neck/ shoulder pain. Her recent PET as well as MRI of the C spine showed a pathologic fracture at C5. We had reached out to Dr Emanuel Mayberry about kyphoplasty. He stated that lesions above T5 were very tricky, and that at select tertiary centers, they may consider that, however this would not something that they would do in [place]. We had spoke to Angela about palliative radiation therapy for the C5 lesion as well.
[2017-07-08] MEDS: Enoxaparin 40 mg Syringe SC SCH (09:27)
[2017-07-08] MEDS: Morphine 2 mg/ml ISec IVP PRN ×3 (09:28→19:12)
--- NOTE | 2017-07-08 10:33 | CP.PCM.PN ---
<Milo Wagner - Last Filed: 07/08/17 10:57> Subjective - Date & Time of Evaluation Date of Evaluation: 07/08/17 Time of Evaluation: 10:00 - Subjective Subjective: IM progress note: Pt seen and examined at bedside. No acute events overnight. Pt c/o of minimal neck pain and some back pain. No other complaints. 12 Point ROS performed and negative other than stated above. Objective - Vital Signs/Intake and Output Vital Signs (last 24 hours): Temp Pulse Resp BP Pulse Ox 97.6 F 70 18 121/78 100 07/08/17 07:47 07/08/17 09:28 07/08/17 07:47 07/08/17 09:28 07/08/17 07:47 - Medications Medications: Current Medications Amlodipine Besylate (Norvasc) 5 mg PO DAILY [facility] Last Admin: 07/08/17 09:28 Dose: 5 mg Dexamethasone (Decadron Inj) 4 mg IVP Q6H [facility] Last Admin: 07/08/17 09:29 Dose: 4 mg Enoxaparin Sodium (Lovenox) 40 mg SC DAILY [facility] PRN Reason: Protocol Last Admin: 07/08/17 09:27 Dose: 40 mg Morphine Sulfate (Morphine) 2 mg IVP Q4H PRN PRN Reason: Pain, severe (8-10) Last Admin: 07/08/17 09:28 Dose: 2 mg Ondansetron HCl (Zofran Inj) 4 mg IVP Q6H PRN PRN Reason: Nausea/Vomiting Pantoprazole Sodium (Protonix Ec Tab) 40 mg PO 0600 [facility] Last Admin: 07/08/17 05:33 Dose: 40 mg - Labs Labs: PT 14.3 SECONDS (9.4-12.5) H 07/07/17 13:00 INR 1.24 (0.93-1.08) H 07/07/17 13:00 APTT 25.7 Seconds (25.1-36.5) 07/07/17 13:00 - Constitutional Appears: No Acute Distress - Head Exam Head Exam: ATRAUMATIC, NORMOCEPHALIC - Eye Exam Eye Exam: EOMI, PERRL - ENT Exam ENT Exam: Mucous Membranes Moist - Respiratory Exam Respiratory Exam: Clear to Ausculation Bilateral. absent: Wheezes - Cardiovascular Exam Cardiovascular Exam: REGULAR RHYTHM, RRR, +S1, +S2 - GI/Abdominal Exam GI & Abdominal Exam: Soft. absent: Tenderness - Extremities Exam Extremities Exam: absent: Calf Tenderness, Pedal Edema - Neurological Exam Neurological Exam: Alert, Awake, Oriented x3 Neuro motor strength exam: Left Upper Extremity: 5, Right Upper Extremity: 5 - Psychiatric Exam Psychiatric exam: Normal Affect, Normal Mood - Skin Skin Exam: Dry, Intact, Warm Assessment and Plan - Assessment and Plan (Free Text) Assessment: 52 y/o female with pmh of mets breast cancer, htn presents following recs from her rad/onc doctor for admission for Abnormal imaging of neck MRI - with pathologic fx of C5. 1. Mets breast ca with pathologic fx of C5 - MRI and Pet CT scan reviewed - Pain control with Morphine - Decadrom 4mg Q6H - Zofran for nausea - Heme/onc - Dr Pena Consulted for recs - recommend neurosurgical evaluation, IR evaluation ?kyphoplasty, Dr. Mahoney if would benefit from palliative radiotherapy - Rad/Onc - Dr Mahoney Consulted for recs "reached out to Dr Emanuel Mayberry about kyphoplasty. He stated that lesions above T5 were very tricky, and that at select tertiary centers, they may consider that. however this would not something that they would do in [place]" - IR consult for recs - Neuro sx consulted for recs - Heart healthy diet - AM labs - Explained to the pt in detail to no have any sudden movement of her neck and encourgaed her to wear the neck brace. Explained in length of any new symptoms to contact nurse and physician right away. Pt verbalized understanding. 2. HTN - Cont home Amlodipine 3. GI/DVT ppx - Protonix and Lovenox sc Pt was seen, reviewed and discussed in detail with Dr Butt <Gloria Butt - Last Filed: 07/08/17 13:15> Objective - Vital Signs/Intake and Output Vital Signs (last 24 hours): Temp Pulse Resp BP Pulse Ox 97.6 F 70 18 121/78 100 07/08/17 07:47 07/08/17 09:28 07/08/17 07:47 07/08/17 09:28 07/08/17 07:47 - Medications Medications: Current Medications Amlodipine Besylate (Norvasc) 5 mg PO DAILY [facility] Last Admin: 07/08/17 09:28 Dose: 5 mg Dexamethasone (Decadron Inj) 4 mg IVP Q6H [facility] Last Admin: 07/08/17 09:29 Dose: 4 mg Enoxaparin Sodium (Lovenox) 40 mg SC DAILY [facility] PRN Reason: Protocol Last Admin: 07/08/17 09:27 Dose: 40 mg Morphine Sulfate (Morphine) 2 mg IVP Q4H PRN PRN Reason: Pain, severe (8-10) Last Admin: 07/08/17 09:28 Dose: 2 mg Ondansetron HCl (Zofran Inj) 4 mg IVP Q6H PRN PRN Reason: Nausea/Vomiting Pantoprazole Sodium (Protonix Ec Tab) 40 mg PO 0600 [facility] Last Admin: 07/08/17 05:33 Dose: 40 mg - Labs Labs: PT 14.3 SECONDS (9.4-12.5) H 07/07/17 13:00 INR 1.24 (0.93-1.08) H 07/07/17 13:00 APTT 25.7 Seconds (25.1-36.5) 07/07/17 13:00 Attending/Attestation - Attestation I have personally seen and examined this patient.: Yes I have fully participated in the care of the patient.: Yes I have reviewed all pertinent clinical information, including history, physical exam and plan: Yes Notes (Text): 07/08/17 13:07 Attending note; Patient seen and examined with resident. Patient is a 52-year-old female with past medical history of metastatic breast cancer, hypertension is admitted with neck pain. The patient had chronic neck pain since January. Recent MRI showed compression fraction of C5. Recent PET scan showed new metastatic disease in scapula. The patient got palliative radiation to the hip and shoulder. Currently admitted for pain management and IV Decadron. Currently no arm weakness or numbness. But patient has generalized pain. Also complaining of mild neck pain. Pain is adequately treated with IV morphine now. Radiation oncology consult with Dr. Mahoney appreciated. Seen by oncology Dr. Pena. Neurosurgery evaluation appreciated. CT cervical spine ordered . The diagnosis and treatment option explained to the patient in detail.
--- NOTE | 2017-07-08 12:59 | CP.PCM.CON ---
History of Present Illness - History of Present Illness History of Present Illness: dictated CT c spine ordered to evaluate bone integrity/stability of spine Past Patient History - Infectious Disease Hx of Infectious Diseases: None - Past Medical History & Family History Past Medical History?: Yes - Past Social History Smoking Status: Never Smoked - CARDIAC Hx Cardiac Disorders: Yes Hx Hypertension: Yes - PULMONARY Hx Respiratory Disorders: Yes Other/Comment: lung bx r lower lobe, right lower lobectomy 04/07/2014 - NEUROLOGICAL Other/Comment: AAOX3 - HEENT Hx HEENT Problems: No - RENAL Hx Chronic Kidney Disease: No - ENDOCRINE/METABOLIC Hx Endocrine Disorders: No - HEMATOLOGICAL/ONCOLOGICAL Hx Blood Disorders: Yes (thrombocytopenia/neutropenia) Hx Anemia: Yes (blood transfusions) Hx Cancer: Yes (breast ca stage 4) Hx Chemotherapy: Yes (LAST CHEMO 07/04/17) Other/Comment: pt dx with left breast ca 2010 had left mastectomy 06/2011 has had chemo on and off since 2011 last chemo 07/04/17, pt had radiation in january 2017 and mar 2017. pt dx with r lunc ca 2013 and recently bone mets lesion on c5 recent mri show brain lesions - INTEGUMENTARY Hx Dermatological Problems: Yes Other/Comment: LEFT BREAST MASTECTOMY - MUSCULOSKELETAL/RHEUMATOLOGICAL Hx Falls: No - GASTROINTESTINAL Hx Gastrointestinal Disorders: Yes (weight loss) Other/Comment: breast ca and chemo - GENITOURINARY/GYNECOLOGICAL Hx Genitourinary Disorders: Yes - PSYCHIATRIC Hx Substance Use: No - SURGICAL HISTORY Hx Mastectomy: Yes (LEFT MASTECTOMY 2011) Other/Comment: R sided port, left breast mastectomy, r lung bx, right lower lobe lobectomy 04/07/2014 - ANESTHESIA Hx Anesthesia: Yes Hx Anesthesia Reactions: No Hx Malignant Hyperthermia: No Meds Allergies/Adverse Reactions: Allergies Allergy/AdvReac Type Severity Reaction Status Date / Time No Known Allergies Allergy Verified 07/07/17 12:00 - Medications Medications: Current Medications Amlodipine Besylate (Norvasc) 5 mg PO DAILY [facility] Last Admin: 07/08/17 09:28 Dose: 5 mg Dexamethasone (Decadron Inj) 4 mg IVP Q6H [facility] Last Admin: 07/08/17 09:29 Dose: 4 mg Enoxaparin Sodium (Lovenox) 40 mg SC DAILY [facility] PRN Reason: Protocol Last Admin: 07/08/17 09:27 Dose: 40 mg Morphine Sulfate (Morphine) 2 mg IVP Q4H PRN PRN Reason: Pain, severe (8-10) Last Admin: 07/08/17 09:28 Dose: 2 mg Ondansetron HCl (Zofran Inj) 4 mg IVP Q6H PRN PRN Reason: Nausea/Vomiting Pantoprazole Sodium (Protonix Ec Tab) 40 mg PO 0600 [facility] Last Admin: 07/08/17 05:33 Dose: 40 mg Results - Vital Signs Recent Vital Signs: Last Vital Signs Temp 97.6 F 07/08/17 07:47 Pulse 70 07/08/17 09:28 Resp 18 07/08/17 07:47 BP 121/78 07/08/17 09:28 Pulse Ox 100 07/08/17 07:47 - Labs Result Diagrams: 07/07/17 13:00 07/07/17 13:00
[2017-07-09] MEDS: Dexamethasone 4 mg/1 ml IVP SCH ×4 (05:10→21:49)
[2017-07-09] MEDS: Pantoprazole 40 mg EC Tab PO SCH (05:12)
--- NOTE | 2017-07-09 08:20 | CON ---
DATE: 07/08/2017 HISTORY OF PRESENT ILLNESS: This is a rather unfortunate lady who has a known history of stage IV breast carcinoma, I believe she was diagnosed back in 2011, and distant multiple metastases recognized in 2013. She has been followed by Dr. Pena. Because of significant complaints of neck pain, she was sent for an MRI. This was shown to unfortunately demonstrate a metastasis/pathologic fracture of the C5 and she was admitted to the hospital. Interviewing her today, she complains of neck pain. She rates the level of the pain approximately at 8 on a 0 to 10 scale. The pain radiates out towards both shoulders and predominantly into the arms. She has some dysesthesias in the same distribution. She denies any overt weakness or dullness in her upper extremities. It seems that she has some lower extremity weakness, but she has multiple long bone mets as well. Denies any bowel or bladder dysfunction. PAST MEDICAL HISTORY: Basically as above. The rest of her medical history, medications, allergies and social history reviewed in the EMR. PHYSICAL EXAMINATION: GENERAL: She is quite awake, pleasant, follows all commands. NEUROLOGIC: Cranial nerves are all intact. She has 5/5 strength throughout the upper extremities and the right lower extremity. She does have little bit of hip flexion, knee extension, weakness in the left leg. Sensation is intact throughout. Reflexes are throughout. [place]'s negative bilaterally. Plantars are downgoing bilaterally. She is wearing a throat collar, which really does not fit her too well. She does have tenderness to palpation in the mid-cervical spine, but it is not horrific. I did not test her range of motion. DIAGNOSTIC DATA: MRI of the cervical spine documents pathologic fracture with narrow placement of C5. There is some subluxation into the canal. There is very, very mild abutment of the spinal cord/nerve root compression. There seems to be some involvement of C7 as well. The post-gadolinium images are somewhat difficult to interpret. IMPRESSION AND PLAN: As far as treatment goes, the concern here is the potential instability of the spine, as there is a question as to involvement of the posterior element. I have ordered a CT of the cervical spine to evaluate the bony integrity/stability of the cervical spine. If it is in fact stable, I would probably advocate attempting to treat this more conservatively with targeted radiation. Obviously if there is any significant instability of the spine, she may need operative fixation. We will follow up once the CT has been performed. Solo Lopse MD
--- NOTE | 2017-07-09 09:17 | CT ---
PROCEDURE: CT Cervical Spine without contrast HISTORY: C5 tumor. Evaluate bone integrity COMPARISON: None available. TECHNIQUE: Axial computed tomography images were obtained of the cervical spine without the use of intravenous contrast. Coronal and sagittal reformatted images were created and reviewed. Radiation dose: Total exam DLP = 389 mGy-cm. This CT exam was performed using one or more of the following dose reduction techniques: Automated exposure control, adjustment of the mA and/or kV according to patient size, and/or use of iterative reconstruction technique. FINDINGS: VERTEBRAE: There is a severe compression fracture of the C5 vertebral body which measures 3.4 mm in height centrally. A normal height would be 9-10 mm. There is encroachment of the spinal canal 2.8 mm. There is also a focal compression of the superior endplate of C7 on the right side. There is no obvious bony tumor. DISCS/SPINAL CANAL/NEURAL FORAMINA: No significant central canal or neural foraminal stenosis. Discs heights are grossly preserved. PARASPINAL SOFT TISSUES: Unremarkable. OTHER FINDINGS: None. IMPRESSION: There is a severe compression fracture of the C5 vertebral body which measures 3.4 mm in height centrally. A normal height would be 9-10 mm. There is encroachment of the spinal canal 2.8 mm. There is also a focal compression of the superior endplate of C7 on the right side. There is no obvious bony tumor.
[2017-07-09] MEDS: Enoxaparin 40 mg Syringe SC SCH (11:32)
[2017-07-09] MEDS: Morphine 2 mg/ml ISec IVP PRN ×2 (11:33→19:44)
--- NOTE | 2017-07-09 14:14 | CP.PCM.PN ---
<Sultana Lainez - Last Filed: 07/09/17 14:11> Subjective - Date & Time of Evaluation Date of Evaluation: 07/09/17 Time of Evaluation: 10:30 - Subjective Subjective: Sultana Lainez DO PGY1 - Internal Medicine Progress Note Patient seen and examined at bedside. Nurse reports no events overnight. Patient reports mild pain in her neck, though well controlled with current pain regimen. Patient inquiring about what the best course of action is for her compression fracture. Denies weakness, bladder or bowel incontinence. 12 Point ROS performed and negative other than stated above. Objective - Vital Signs/Intake and Output Vital Signs (last 24 hours): Temp Pulse Resp BP Pulse Ox 98 F 58 L 19 144/85 98 07/09/17 07:47 07/09/17 07:47 07/09/17 07:47 07/09/17 07:47 07/09/17 07:47 Intake and Output: 07/09/17 07/09/17 06:59 18:59 Intake Total 120 Balance 120 - Medications Medications: Current Medications Amlodipine Besylate (Norvasc) 5 mg PO DAILY [facility] Last Admin: 07/09/17 11:32 Dose: 5 mg Dexamethasone (Decadron Inj) 4 mg IVP Q6H [facility] Last Admin: 07/09/17 11:33 Dose: 4 mg Docusate Sodium (Colace) 100 mg PO DAILY [facility] Enoxaparin Sodium (Lovenox) 40 mg SC DAILY [facility] PRN Reason: Protocol Last Admin: 07/09/17 11:32 Dose: 40 mg Morphine Sulfate (Morphine) 2 mg IVP Q4H PRN PRN Reason: Pain, severe (8-10) Last Admin: 07/09/17 11:33 Dose: 2 mg Ondansetron HCl (Zofran Inj) 4 mg IVP Q6H PRN PRN Reason: Nausea/Vomiting Pantoprazole Sodium (Protonix Ec Tab) 40 mg PO 0600 [facility] Last Admin: 07/09/17 05:12 Dose: 40 mg Polyethylene Glycol (Miralax) 17 gm PO DAILY [facility] - Labs Labs: PT 14.3 SECONDS (9.4-12.5) H 07/07/17 13:00 INR 1.24 (0.93-1.08) H 07/07/17 13:00 APTT 25.7 Seconds (25.1-36.5) 07/07/17 13:00 - Constitutional Appears: Non-toxic, No Acute Distress - Head Exam Head Exam: ATRAUMATIC, NORMOCEPHALIC - Eye Exam Eye Exam: EOMI, Normal appearance, PERRL - ENT Exam ENT Exam: Mucous Membranes Moist - Neck Exam Neck Exam: Full ROM, Tenderness (mild, posteriorly) - Respiratory Exam Respiratory Exam: Clear to Ausculation Bilateral, NORMAL BREATHING PATTERN - Cardiovascular Exam Cardiovascular Exam: RRR, +S1, +S2 - GI/Abdominal Exam GI & Abdominal Exam: Soft, Normal Bowel Sounds. absent: Tenderness - Extremities Exam Extremities Exam: absent: Calf Tenderness, Pedal Edema - Neurological Exam Neurological Exam: Alert, Awake, Oriented x3 Neuro motor strength exam: Left Upper Extremity: 5, Right Upper Extremity: 5 - Psychiatric Exam Psychiatric exam: Normal Affect, Normal Mood - Skin Skin Exam: Dry, Intact, Normal Color, Warm Assessment and Plan - Assessment and Plan (Free Text) Assessment: 52 y/o female with pmh of mets breast cancer, HTN presents following recs from her rad/onc doctor for admission for Abnormal imaging of neck MRI - with pathologic fx of C5. 1. Metastatic breast ca with pathologic fx of C5 - Pain control with Morphine - Colace and miralax to avoid constipation - Decadrom 4mg IVP Q6H - Zofran for nausea - Heme/onc - Dr Pena consulted for recs - recommend neurosurgical evaluation, IR evaluation ?kyphoplasty, Dr. Mahoney if would benefit from palliative radiotherapy - Rad/Onc - Dr Mahoney Consulted for recs "reached out to Dr Emanuel Mayberry about kyphoplasty. He stated that lesions above T5 were very tricky, and that at select tertiary centers, they may consider that. however this would not something that they would do in [place]" - Neurosurgery consulted - Dr Lopes, recommended CT spine to evaluate stability of fracture, surgery if instable vs conservative management - C-spine CT done, significant for severe compression fracture of C5 and focal compression of superior endplate of C7; pending review by Dr. Lopes - Explained to the pt in detail to no have any sudden movement of her neck and encourgaed her to wear the neck brace. Explained in length of any new symptoms to contact nurse and physician right away. Pt verbalized understanding. 2. HTN - Cont home Amlodipine 3. GI/DVT ppx - Protonix and Lovenox sc Pt was seen, reviewed and discussed in detail with Dr Butt <Gloria Butt - Last Filed: 07/09/17 16:20> Objective - Vital Signs/Intake and Output Vital Signs (last 24 hours): Temp Pulse Resp BP Pulse Ox 98 F 58 L 19 144/85 98 07/09/17 07:47 07/09/17 07:47 07/09/17 07:47 07/09/17 07:47 07/09/17 07:47 Intake and Output: 07/09/17 07/09/17 06:59 18:59 Intake Total 120 Balance 120 - Medications Medications: Current Medications Amlodipine Besylate (Norvasc) 5 mg PO DAILY [facility] Last Admin: 07/09/17 11:32 Dose: 5 mg Dexamethasone (Decadron Inj) 4 mg IVP Q6H [facility] Last Admin: 07/09/17 16:08 Dose: 4 mg Docusate Sodium (Colace) 100 mg PO DAILY [facility] Enoxaparin Sodium (Lovenox) 40 mg SC DAILY [facility] PRN Reason: Protocol Last Admin: 07/09/17 11:32 Dose: 40 mg Morphine Sulfate (Morphine) 2 mg IVP Q4H PRN PRN Reason: Pain, severe (8-10) Last Admin: 07/09/17 11:33 Dose: 2 mg Ondansetron HCl (Zofran Inj) 4 mg IVP Q6H PRN PRN Reason: Nausea/Vomiting Pantoprazole Sodium (Protonix Ec Tab) 40 mg PO 0600 [facility] Last Admin: 07/09/17 05:12 Dose: 40 mg Polyethylene Glycol (Miralax) 17 gm PO DAILY [facility] - Labs Labs: 07/09/17 14:33 07/09/17 14:33 PT 14.1 SECONDS (9.4-12.5) H 07/09/17 14:33 INR 1.23 (0.93-1.08) H 07/09/17 14:33 APTT 28.2 Seconds (25.1-36.5) 07/09/17 14:33 Attending/Attestation - Attestation I have personally seen and examined this patient.: Yes I have fully participated in the care of the patient.: Yes I have reviewed all pertinent clinical information, including history, physical exam and plan: Yes Notes (Text): 07/09/17 16:16 Attending note; Patient seen and examined with resident. Patient is a 52-year-old female with past medical history of metastatic breast cancer, hypertension is admitted with neck pain. The patient had chronic neck pain since January. Recent MRI showed compression fraction of C5. Recent PET scan showed new metastatic disease in scapula. The patient got palliative radiation to the hip and shoulder in the past. Currently admitted for pain management and IV Decadron. Currently no arm weakness or numbness. But patient has generalized pain. Also complaining of mild neck pain. Pain is adequately treated with IV morphine now. Radiation oncology consult with Dr. Mahoney appreciated. Seen by oncology Dr. Pena. Neurosurgery evaluation appreciated. CT cervical spine showed severe compression fracture of C5 and focal compression of superior endplate of C7. Neuro surgery recommended [place] J collar. The diagnosis and treatment option explained to the patient in detail. 07/09/17 16:19 07/09/17 16:20
[2017-07-09 14:45] LABS: BASO # 0.19 K/mm3 (0.0-2.0); BASO % 8.2 % (0.0-3.0); GRAN # 1.66 (1.4-6.5); GRAN % 71.1 % (50.0-68.0); HEMOGLOBIN 9.9 g/dL (12.0-16.0); LYMPH # 0.4 (1.2-3.4); LYMPH % 15.5 % (22.0-35.0); MEAN CELL VOLUME 101.3 fl (80.0-105.0); MEAN CORPUSCULAR HEMOGLOBIN 32.2 pg (25.0-35.0); MEAN CORPUSCULAR HGB CONC 31.8 g/dl (31.0-37.0); MONO # 0.1 (0.1-0.6); MONO % 5.2 % (1.0-6.0); PLATELET COUNT 63 10^3/uL (120.0-450.0); RBC 3.07 10^6/uL (3.5-6.1); RED CELL DISTRIBUTION WIDTH 17.2 % (11.5-14.5)
[2017-07-09 14:58] LABS: ALB/GLOB RATIO 1.2 (1.1-1.8); ALBUMIN 3.7 g/dL (3.0-4.8); ALT/SGPT 25 U/L (7-56); AST/SGOT 25 U/L (14-36); BLOOD UREA NITROGEN 20 mg/dL (7-21); CALCIUM 9.6 mg/dL (8.4-10.5); GFR AFRICAN-AMERICAN > 60; GFR NON-AFRICAN AMERICAN > 60
[2017-07-09 15:04] LABS: WHITE BLOOD COUNT 2.3 10^3/ul (4.5-11.0)
[2017-07-09 15:08] LABS: INR 1.23 (0.93-1.08); PARTIAL THROMBOPLASTIN TIME 28.2 Seconds (25.1-36.5); PROTHROMBIN TIME 14.1 SECONDS (9.4-12.5)
[2017-07-09 15:42] LABS: LYMPHOCYTE 28 % (22.0-35.0); MONOCYTE 2 % (1.0-6.0); NEUTROPHIL 70 % (50.0-70.0)
[2017-07-09 15:43] LABS: ANISOCYTOSIS SLIGHT; MICROCYTOSIS SLIGHT; OVALOCYTES SLIGHT; PLATELET ESTIMATE LOW (NORMAL); TEAR DROP CELLS SLIGHT
[2017-07-09] MEDS ORDERED: Potassium Chloride 20 mEq ER Tab PO ONE (17:13)
[2017-07-09] MEDS ORDERED: POLYETHYLENE GLYCOL 3350 17 GM/Dose PACKET PO ONE (18:17)
[2017-07-10] MEDS: Dexamethasone 4 mg/1 ml IVP SCH (04:04)
[2017-07-10] MEDS: Pantoprazole 40 mg EC Tab PO SCH (06:10)
[2017-07-10 07:38] LABS: ALB/GLOB RATIO 1.2 (1.1-1.8); ALBUMIN 3.5 g/dL (3.0-4.8); ALT/SGPT 29 U/L (7-56); AST/SGOT 22 U/L (14-36); BLOOD UREA NITROGEN 19 mg/dL (7-21); CALCIUM 9.6 mg/dL (8.4-10.5); GFR AFRICAN-AMERICAN > 60; GFR NON-AFRICAN AMERICAN > 60; MAGNESIUM 1.5 mg/dL (1.7-2.2)
[2017-07-10 07:51] LABS: BASO # 0.07 K/mm3 (0.0-2.0); BASO % 5.7 % (0.0-3.0); GRAN # 0.79 (1.4-6.5); GRAN % 64.8 % (50.0-68.0); HEMOGLOBIN 9.9 g/dL (12.0-16.0); LYMPH # 0.3 (1.2-3.4); LYMPH % 25.4 % (22.0-35.0); MEAN CORPUSCULAR HEMOGLOBIN 32.1 pg (25.0-35.0); MEAN CORPUSCULAR HGB CONC 31.8 g/dl (31.0-37.0); MONO # 0.1 (0.1-0.6); MONO % 4.1 % (1.0-6.0); PLATELET COUNT 67 10^3/uL (120.0-450.0); RBC 3.08 10^6/uL (3.5-6.1); RED CELL DISTRIBUTION WIDTH 17.3 % (11.5-14.5)
[2017-07-10 07:58] LABS: WHITE BLOOD COUNT 1.2 10^3/ul (4.5-11.0)
[2017-07-10] MEDS ORDERED: Magnesium Sulfate 2 GM in Sodium Chloride 0.9% 100 ML IVPB ONE ×2 (08:22→09:29)
[2017-07-10 09:16] VITALS: BP 130/74; RESP 18; TEMP 97.6; O2SAT 99
[2017-07-10] MEDS ORDERED: POLYETHYLENE GLYCOL 3350 17 GM/Dose PACKET PO SCH (10:00)
[2017-07-10] MEDS: Enoxaparin 40 mg Syringe SC SCH (10:11)
[2017-07-10] MEDS: Morphine 2 mg/ml ISec IVP PRN (10:13)
[2017-07-10 10:17] VITALS: PULSE 61
[2017-07-10] MEDS ORDERED: Oxycodone/Acetaminophen 5/325 mg Tab PO PRN (11:36)
[2017-07-10] MEDS ORDERED: Dexamethasone 4 mg/1 ml IVP SCH (14:00)
--- NOTE | 2017-07-10 14:24 | CP.PCM.PN ---
Subjective - Date & Time of Evaluation Date of Evaluation: 07/10/17 Time of Evaluation: 14:18 - Subjective Subjective: Had lengthy discussion with Dr Pena and Dr Sim(RT) they feel pt has very limited life expectancy. RT has been started, and will hopefully alleviate some of her pain.I explained the appropriate surgical procedure would be a C5 corpectomy with fusion and instrumentation. Do to her current condition and limited life expectancy we decided to continue with RT and Chemo. If she should improve medically Dr Pena will contact me to reconsider surgery. Decision regarding discharged not up to me. she should continue in a [place] J collar at this time regardless of disposition. Objective - Vital Signs/Intake and Output Vital Signs (last 24 hours): Temp Pulse Resp BP Pulse Ox 97.6 F 61 18 130/74 99 07/10/17 06:00 07/10/17 10:13 07/10/17 06:00 07/10/17 10:13 07/10/17 06:00 Intake and Output: 07/10/17 07/10/17 06:59 18:59 Intake Total 0 Balance 0 - Medications Medications: Current Medications Amlodipine Besylate (Norvasc) 5 mg PO DAILY [facility] Last Admin: 07/10/17 10:13 Dose: 5 mg Dexamethasone (Decadron Inj) 4 mg IVP Q8 [facility] Docusate Sodium (Colace) 100 mg PO DAILY [facility] Last Admin: 07/10/17 10:11 Dose: 100 mg Enoxaparin Sodium (Lovenox) 40 mg SC DAILY [facility] PRN Reason: Protocol Last Admin: 07/10/17 10:11 Dose: 40 mg Morphine Sulfate (Morphine) 2 mg IVP Q4H PRN PRN Reason: Pain, severe (8-10) Last Admin: 07/10/17 10:13 Dose: 2 mg Ondansetron HCl (Zofran Inj) 4 mg IVP Q6H PRN PRN Reason: Nausea/Vomiting Oxycodone/Acetaminophen (Percocet 5/325 Mg Tab) 1 tab PO Q4H PRN PRN Reason: Pain, moderate (4-7) Stop: 07/13/17 11:37 Pantoprazole Sodium (Protonix Ec Tab) 40 mg PO 0600 [facility] Last Admin: 07/10/17 06:10 Dose: 40 mg Polyethylene Glycol (Miralax) 17 gm PO DAILY [facility] Last Admin: 07/10/17 10:12 Dose: 17 gm - Labs Labs: 07/10/17 05:30 07/10/17 05:30 PT 14.1 SECONDS (9.4-12.5) H 07/09/17 14:33 INR 1.23 (0.93-1.08) H 07/09/17 14:33 APTT 28.2 Seconds (25.1-36.5) 07/09/17 14:33
--- NOTE | 2017-07-10 15:59 | CP.PCM.PN ---
Subjective - Date & Time of Evaluation Date of Evaluation: 07/09/17 Time of Evaluation: 19:00 - Subjective Subjective: Has some neck pain Objective - Vital Signs/Intake and Output Vital Signs (last 24 hours): Temp Pulse Resp BP Pulse Ox 97.6 F 61 18 130/74 99 07/10/17 06:00 07/10/17 10:13 07/10/17 06:00 07/10/17 10:13 07/10/17 06:00 Intake and Output: 07/10/17 07/10/17 06:59 18:59 Intake Total 0 Balance 0 - Medications Medications: Current Medications Amlodipine Besylate (Norvasc) 5 mg PO DAILY [facility] Last Admin: 07/10/17 10:13 Dose: 5 mg Dexamethasone (Decadron Inj) 4 mg IVP Q8 [facility] Docusate Sodium (Colace) 100 mg PO DAILY [facility] Last Admin: 07/10/17 10:11 Dose: 100 mg Enoxaparin Sodium (Lovenox) 40 mg SC DAILY [facility] PRN Reason: Protocol Last Admin: 07/10/17 10:11 Dose: 40 mg Morphine Sulfate (Morphine) 2 mg IVP Q4H PRN PRN Reason: Pain, severe (8-10) Last Admin: 07/10/17 10:13 Dose: 2 mg Ondansetron HCl (Zofran Inj) 4 mg IVP Q6H PRN PRN Reason: Nausea/Vomiting Oxycodone/Acetaminophen (Percocet 5/325 Mg Tab) 1 tab PO Q4H PRN PRN Reason: Pain, moderate (4-7) Stop: 07/13/17 11:37 Pantoprazole Sodium (Protonix Ec Tab) 40 mg PO 0600 [facility] Last Admin: 07/10/17 06:10 Dose: 40 mg Polyethylene Glycol (Miralax) 17 gm PO DAILY [facility] Last Admin: 07/10/17 10:12 Dose: 17 gm - Labs Labs: 07/10/17 05:30 07/10/17 05:30 PT 14.1 SECONDS (9.4-12.5) H 07/09/17 14:33 INR 1.23 (0.93-1.08) H 07/09/17 14:33 APTT 28.2 Seconds (25.1-36.5) 07/09/17 14:33 - Head Exam Head Exam: ATRAUMATIC - Eye Exam Eye Exam: Normal appearance - ENT Exam ENT Exam: Mucous Membranes Dry - Respiratory Exam Respiratory Exam: NORMAL BREATHING PATTERN - Cardiovascular Exam Cardiovascular Exam: +S1, +S2 - GI/Abdominal Exam GI & Abdominal Exam: Normal Bowel Sounds - Extremities Exam Extremities Exam: Normal Inspection Assessment and Plan (1) Pathological fracture Assessment & Plan: Started radiation neurosurgical evaluation Status: Acute (2) Thrombocytopenia Assessment & Plan: secondary to chemo Status: Acute (3) Anemia Assessment & Plan: chronic disease, chemotherapy Status: Acute (4) Breast cancer Assessment & Plan: stage IV outpatient chemotherapy Status: Chronic
--- NOTE | 2017-07-10 16:03 | CP.PCM.PN ---
Subjective - Date & Time of Evaluation Date of Evaluation: 07/10/17 Time of Evaluation: 12:00 - Subjective Subjective: Case discussed with Dr. Branch and Dr. Butt No surgical intervention at this time given metastatic disease, life expectancy and potential for surgical morbidity Objective - Vital Signs/Intake and Output Vital Signs (last 24 hours): Temp Pulse Resp BP Pulse Ox 97.6 F 61 18 130/74 99 07/10/17 06:00 07/10/17 10:13 07/10/17 06:00 07/10/17 10:13 07/10/17 06:00 Intake and Output: 07/10/17 07/10/17 06:59 18:59 Intake Total 0 Balance 0 - Medications Medications: Current Medications Amlodipine Besylate (Norvasc) 5 mg PO DAILY [facility] Last Admin: 07/10/17 10:13 Dose: 5 mg Dexamethasone (Decadron Inj) 4 mg IVP Q8 [facility] Docusate Sodium (Colace) 100 mg PO DAILY [facility] Last Admin: 07/10/17 10:11 Dose: 100 mg Enoxaparin Sodium (Lovenox) 40 mg SC DAILY [facility] PRN Reason: Protocol Last Admin: 07/10/17 10:11 Dose: 40 mg Morphine Sulfate (Morphine) 2 mg IVP Q4H PRN PRN Reason: Pain, severe (8-10) Last Admin: 07/10/17 10:13 Dose: 2 mg Ondansetron HCl (Zofran Inj) 4 mg IVP Q6H PRN PRN Reason: Nausea/Vomiting Oxycodone/Acetaminophen (Percocet 5/325 Mg Tab) 1 tab PO Q4H PRN PRN Reason: Pain, moderate (4-7) Stop: 07/13/17 11:37 Pantoprazole Sodium (Protonix Ec Tab) 40 mg PO 0600 [facility] Last Admin: 07/10/17 06:10 Dose: 40 mg Polyethylene Glycol (Miralax) 17 gm PO DAILY [facility] Last Admin: 07/10/17 10:12 Dose: 17 gm - Labs Labs: 07/10/17 05:30 07/10/17 05:30 PT 14.1 SECONDS (9.4-12.5) H 07/09/17 14:33 INR 1.23 (0.93-1.08) H 07/09/17 14:33 APTT 28.2 Seconds (25.1-36.5) 07/09/17 14:33 - Head Exam Head Exam: ATRAUMATIC - Eye Exam Eye Exam: Normal appearance - ENT Exam ENT Exam: Mucous Membranes Dry - Respiratory Exam Respiratory Exam: NORMAL BREATHING PATTERN - Cardiovascular Exam Cardiovascular Exam: +S1, +S2 - GI/Abdominal Exam GI & Abdominal Exam: Normal Bowel Sounds Assessment and Plan (1) Pathological fracture Assessment & Plan: C-collar radiation no surgical intervention at this point possible outpatient kyphoplasty Status: Acute (2) Thrombocytopenia Assessment & Plan: secondary to chemo Status: Acute (3) Anemia Assessment & Plan: chronic disease, chemotherapy Status: Acute (4) Breast cancer Assessment & Plan: stage IV outpatient chemo Status: Chronic
[2017-07-10] MEDS ORDERED: POLYETHYLENE GLYCOL 3350 17 GM/Dose PACKET PO ONE (18:17)
--- NOTE | 2017-07-10 21:16 | CP.PCM.DIS ---
<AmineSultana - Last Filed: 07/10/17 21:04> Provider - Provider Date of Admission: 07/07/17 14:42 Attending physician: Gloria Butt MD Primary care physician: Rupert Lopez MD Consults: Hem/Onc: Jean Rad/Onc: Maru Neurosurgery: Sarina Time Spent in preparation of Discharge (in minutes): 45 Diagnosis - Discharge Diagnosis (1) Metastatic cancer Status: Acute (2) Neutropenia Status: Acute (3) Pathological fracture Status: Acute Hospital Course - Lab Results Lab Results: Most Recent Lab Values WBC 1.2 10^3/ul (4.5-11.0) L* D 07/10/17 05:30 RBC 3.08 10^6/uL (3.5-6.1) L 07/10/17 05:30 Hgb 9.9 g/dL (12.0-16.0) L 07/10/17 05:30 Hct 31.1 % (36.0-48.0) L 07/10/17 05:30 MCV 101.0 fl (80.0-105.0) 07/10/17 05:30 MCH 32.1 pg (25.0-35.0) 07/10/17 05:30 MCHC 31.8 g/dl (31.0-37.0) 07/10/17 05:30 RDW 17.3 % (11.5-14.5) H 07/10/17 05:30 Plt Count 67 10^3/uL (120.0-450.0) L 07/10/17 05:30 Gran % 64.8 % (50.0-68.0) 07/10/17 05:30 Lymph % (Auto) 25.4 % (22.0-35.0) 07/10/17 05:30 [place] % (Auto) 4.1 % (1.0-6.0) 07/10/17 05:30 Eos % (Auto) 0.0 % (1.5-5.0) L 07/10/17 05:30 Baso % (Auto) 5.7 % (0.0-3.0) H 07/10/17 05:30 Gran # 0.79 (1.4-6.5) L 07/10/17 05:30 Lymph # 0.3 (1.2-3.4) L 07/10/17 05:30 [place] # 0.1 (0.1-0.6) 07/10/17 05:30 Eos # 0.0 (0.0-0.7) 07/10/17 05:30 Baso # 0.07 K/mm3 (0.0-2.0) 07/10/17 05:30 Neutrophils % (Manual) 70 % (50.0-70.0) 07/09/17 14:33 Lymphocytes % (Manual) 28 % (22.0-35.0) 07/09/17 14:33 Monocytes % (Manual) 2 % (1.0-6.0) 07/09/17 14:33 Platelet Evaluation Low (NORMAL) 07/09/17 14:33 Anisocytosis (manual) Slight 07/09/17 14:33 Microcytosis (manual) Slight 07/09/17 14:33 Macrocytosis (manual) Slight 07/09/17 14:33 Tear Drop Cells Slight 07/09/17 14:33 Ovalocytes Slight 07/09/17 14:33 PT 14.1 SECONDS (9.4-12.5) H 07/09/17 14:33 INR 1.23 (0.93-1.08) H 07/09/17 14:33 APTT 28.2 Seconds (25.1-36.5) 07/09/17 14:33 Sodium 143 mmol/L (132-148) 07/10/17 05:30 Potassium 4.0 mmol/L (3.6-5.0) 07/10/17 05:30 Chloride 103 mmol/L (98-107) 07/10/17 05:30 Carbon Dioxide 31 mmol/L (21-33) 07/10/17 05:30 Anion Gap 13 (10-20) 07/10/17 05:30 BUN 19 mg/dL (7-21) 07/10/17 05:30 Creatinine 0.6 mg/dl (0.7-1.2) L 07/10/17 05:30 Est GFR ( Amer) > 60 07/10/17 05:30 Est GFR (Non-Af Amer) > 60 07/10/17 05:30 Random Glucose 115 mg/dL (70-110) H 07/10/17 05:30 Calcium 9.6 mg/dL (8.4-10.5) 07/10/17 05:30 Phosphorus 3.2 mg/dL (2.5-4.5) 07/10/17 05:30 Magnesium 1.5 mg/dL (1.7-2.2) L 07/10/17 05:30 Total Bilirubin 0.4 mg/dL (0.2-1.3) 07/10/17 05:30 AST 22 U/L (14-36) 07/10/17 05:30 ALT 29 U/L (7-56) 07/10/17 05:30 Alkaline Phosphatase 72 U/L (38-126) 07/10/17 05:30 Total Protein 6.4 g/dL (5.8-8.3) 07/10/17 05:30 Albumin 3.5 g/dL (3.0-4.8) 07/10/17 05:30 Globulin 2.8 gm/dL 07/10/17 05:30 Albumin/Globulin Ratio 1.2 (1.1-1.8) 07/10/17 05:30 Urine Color Yellow (YELLOW) 07/07/17 13:34 Urine Appearance Clear (CLEAR) 07/07/17 13:34 Urine pH 6.0 (4.7-8.0) 07/07/17 13:34 Ur Specific [place] 1.020 (1.005-1.035) 07/07/17 13:34 Urine Protein Negative mg/dL (<30 mg/dL) 07/07/17 13:34 Urine Glucose (UA) Negative mg/dL (NEGATIVE) 07/07/17 13:34 Urine Ketones Trace mg/dL (NEGATIVE) H 07/07/17 13:34 Urine Blood Negative (NEGATIVE) 07/07/17 13:34 Urine Nitrate Negative (NEGATIVE) 07/07/17 13:34 Urine Bilirubin Negative (NEGATIVE) 07/07/17 13:34 Urine Urobilinogen 0.2 E.U./dL (<1 E.U./dL) 07/07/17 13:34 Ur Leukocyte Esterase Negative Sy/uL (NEGATIVE) 07/07/17 13:34 - Hospital Course Hospital Course: 52 y/o female with pmh of Stage IV breast cancer and htn presents following recs from her rad/onc doctor for admission for abnormal imaging of MRI, noted to have severe compression fracture of C5 vertebra. Patient was complaining of neck pain radiating to both arms. Pain improved with conservative management, including steroids, neck collar, and pain medications. After discussion between neurosurgery, rad/onc, hem/onc, and IR, patient was advised against surgical fixation and instead started palliative radiotherapy. During her hospitalization , patient became neutropenic, 2/2 chemotherapy, but after discussion with Dr. Pena, no granulocyte colony stimulating factors were started prior to discharge. Today, patient reports improved pain, and is tolerating the soft collar well. She denies any new pains, focal weakness or numbness. Patient has a follow up appointment with Dr. Pena tomorrow to repeat bloodwork and assess for need for further chemo or colony stimulating factors. Patient is also scheduled to receive 10 doses of radiotherapy to the C-spine lesion. She was given prescriptions for decadron, percocet, and miralax. All questions were answered to her satisfaction and patient was discharged to home. Discharge Exam - Head Exam Head Exam: ATRAUMATIC, NORMOCEPHALIC - Eye Exam Eye Exam: EOMI, Normal appearance, PERRL - ENT Exam ENT Exam: Mucous Membranes Moist - Neck Exam Neck exam: Tenderness - Respiratory Exam Respiratory Exam: Clear to PA & Lateral, NORMAL BREATHING PATTERN - Cardiovascular Exam Cardiovascular Exam: RRR, +S1, +S2 - GI/Abdominal Exam GI & Abdominal Exam: Normal Bowel Sounds, Soft. absent: Distended, Firm, Guarding, Tenderness - Extremities Exam Extremities exam: full ROM, normal inspection - Neurological Exam Neurological exam: Alert, CN II-XII Intact, Oriented x3 - Psychiatric Exam Psychiatric exam: Normal Affect, Normal Mood - Skin Skin Exam: Dry, Intact, Normal Color Discharge Plan - Discharge Medications Prescriptions: Dexamethasone [Decadron] 4 mg PO BID #20 tab oxyCODONE/Acetaminophen [Percocet 5/325 mg Tab] 1 ea PO Q4 #16 tab Polyethylene Glycol 3350 [Miralax] 17 gm PO DAILY #30 packet - Follow Up Plan Condition: STABLE Disposition: HOME/ ROUTINE Instructions: Breast Cancer in Women (DC), Breast Cancer in Women (GEN) Additional Instructions: 1. Follow up with Dr. Pena tomorrow for repeat blood work and monitoring 2. Follow up with Dr. Branch as indicated; continue to wear the neck brace as prescribed 3. Follow up with Dr. Mahoney for continued radiation therapy, as indicated 4. Continue to take the decadron 4mg twice daily for 10 more days; prescription sent to [facility] 5. Follow up with your primary care doctor within one week 6. Avoid sudden movements of your head and neck 7. For any new or worsening concerns, contact your PCP immediately or return to ER Referrals: Ella Mahoney MD [Staff Provider] - Neymar Pena MD [Staff Provider] - Jori Branch MD [Staff Provider] - Rupert Lopez MD [Primary Care Provider] - <Gloria Butt - Last Filed: 07/11/17 15:57> Provider - Provider Date of Admission: 07/07/17 14:42 Attending physician: Gloria Butt MD Primary care physician: Rupert Lopez MD Hospital Course - Lab Results Lab Results: Most Recent Lab Values WBC 1.2 10^3/ul (4.5-11.0) L* D 07/10/17 05:30 RBC 3.08 10^6/uL (3.5-6.1) L 07/10/17 05:30 Hgb 9.9 g/dL (12.0-16.0) L 07/10/17 05:30 Hct 31.1 % (36.0-48.0) L 07/10/17 05:30 MCV 101.0 fl (80.0-105.0) 07/10/17 05:30 MCH 32.1 pg (25.0-35.0) 07/10/17 05:30 MCHC 31.8 g/dl (31.0-37.0) 07/10/17 05:30 RDW 17.3 % (11.5-14.5) H 07/10/17 05:30 Plt Count 67 10^3/uL (120.0-450.0) L 07/10/17 05:30 Gran % 64.8 % (50.0-68.0) 07/10/17 05:30 Lymph % (Auto) 25.4 % (22.0-35.0) 07/10/17 05:30 [place] % (Auto) 4.1 % (1.0-6.0) 07/10/17 05:30 Eos % (Auto) 0.0 % (1.5-5.0) L 07/10/17 05:30 Baso % (Auto) 5.7 % (0.0-3.0) H 07/10/17 05:30 Gran # 0.79 (1.4-6.5) L 07/10/17 05:30 Lymph # 0.3 (1.2-3.4) L 07/10/17 05:30 [place] # 0.1 (0.1-0.6) 07/10/17 05:30 Eos # 0.0 (0.0-0.7) 07/10/17 05:30 Baso # 0.07 K/mm3 (0.0-2.0) 07/10/17 05:30 Neutrophils % (Manual) 70 % (50.0-70.0) 07/09/17 14:33 Lymphocytes % (Manual) 28 % (22.0-35.0) 07/09/17 14:33 Monocytes % (Manual) 2 % (1.0-6.0) 07/09/17 14:33 Platelet Evaluation Low (NORMAL) 07/09/17 14:33 Anisocytosis (manual) Slight 07/09/17 14:33 Microcytosis (manual) Slight 07/09/17 14:33 Macrocytosis (manual) Slight 07/09/17 14:33 Tear Drop Cells Slight 07/09/17 14:33 Ovalocytes Slight 07/09/17 14:33 PT 14.1 SECONDS (9.4-12.5) H 07/09/17 14:33 INR 1.23 (0.93-1.08) H 07/09/17 14:33 APTT 28.2 Seconds (25.1-36.5) 07/09/17 14:33 Sodium 143 mmol/L (132-148) 07/10/17 05:30 Potassium 4.0 mmol/L (3.6-5.0) 07/10/17 05:30 Chloride 103 mmol/L (98-107) 07/10/17 05:30 Carbon Dioxide 31 mmol/L (21-33) 07/10/17 05:30 Anion Gap 13 (10-20) 07/10/17 05:30 BUN 19 mg/dL (7-21) 07/10/17 05:30 Creatinine 0.6 mg/dl (0.7-1.2) L 07/10/17 05:30 Est GFR ( Amer) > 60 07/10/17 05:30 Est GFR (Non-Af Amer) > 60 07/10/17 05:30 Random Glucose 115 mg/dL (70-110) H 07/10/17 05:30 Calcium 9.6 mg/dL (8.4-10.5) 07/10/17 05:30 Phosphorus 3.2 mg/dL (2.5-4.5) 07/10/17 05:30 Magnesium 1.5 mg/dL (1.7-2.2) L 07/10/17 05:30 Total Bilirubin 0.4 mg/dL (0.2-1.3) 07/10/17 05:30 AST 22 U/L (14-36) 07/10/17 05:30 ALT 29 U/L (7-56) 07/10/17 05:30 Alkaline Phosphatase 72 U/L (38-126) 07/10/17 05:30 Total Protein 6.4 g/dL (5.8-8.3) 07/10/17 05:30 Albumin 3.5 g/dL (3.0-4.8) 07/10/17 05:30 Globulin 2.8 gm/dL 07/10/17 05:30 Albumin/Globulin Ratio 1.2 (1.1-1.8) 07/10/17 05:30 Urine Color Yellow (YELLOW) 07/07/17 13:34 Urine Appearance Clear (CLEAR) 07/07/17 13:34 Urine pH 6.0 (4.7-8.0) 07/07/17 13:34 Ur Specific [place] 1.020 (1.005-1.035) 07/07/17 13:34 Urine Protein Negative mg/dL (<30 mg/dL) 07/07/17 13:34 Urine Glucose (UA) Negative mg/dL (NEGATIVE) 07/07/17 13:34 Urine Ketones Trace mg/dL (NEGATIVE) H 07/07/17 13:34 Urine Blood Negative (NEGATIVE) 07/07/17 13:34 Urine Nitrate Negative (NEGATIVE) 07/07/17 13:34 Urine Bilirubin Negative (NEGATIVE) 07/07/17 13:34 Urine Urobilinogen 0.2 E.U./dL (<1 E.U./dL) 07/07/17 13:34 Ur Leukocyte Esterase Negative Sy/uL (NEGATIVE) 07/07/17 13:34 Attending/Attestation - Attestation I have personally seen and examined this patient.: Yes I have fully participated in the care of the patient.: Yes I have reviewed all pertinent clinical information, including history, physical exam and plan: Yes Notes (Text): 07/11/17 15:54 Attending note; Patient seen and examined with resident. Patient is a 52-year-old female with past medical history of metastatic breast cancer, hypertension is admitted with neck pain. The patient had chronic neck pain since January. Recent MRI showed compression fraction of C5. Recent PET scan showed new metastatic disease in scapula. CT of the cervical spine showed compression of C5. Neurosurgery evaluation appreciated. After discussion with oncology/radiation oncology and neurosurgery the patient will get radiation treatment first. Patient to complete 10 days of radiation therapy. If needed the patient will be referred to outpatient surgery. Patient was also placed on [place] collar ordered by neurosurgery. Patient was treated with IV morphine and IV Decadron. Will be discharged home with Decadron and Percocet. Currently no arm weakness or numbness. Radiation oncology consult with Dr. Mahoney appreciated. Continue radiation therapy. Seen by oncology Dr. Pena. The diagnosis and treatment option explained to the patient in detail. Discharge home today with close follow-up with oncology/neuro surgery/radiation oncologist. The patient will follow-up with Dr. Pena tomorrow to evaluate the need for Neupogen. Currently WBC count is 1.2 with ANC of 760. 07/11/17 15:57
== END 2017-07-10 18:35 | disposition home or self-care (01) | DRG 543 ==
LOC: ED 11:49 → ERH 14:42 → 3RNO 15:42
PROVIDERS: ADMIT Internal Medicine; ATTEND Internal Medicine
DX: M84.58XA Pathological fracture in neoplastic disease, other specified site, initial encounter for fracture (principal); C79.51 Secondary malignant neoplasm of bone; C77.9 Secondary and unspecified malignant neoplasm of lymph node, unspecified; D61.818 Other pancytopenia; C78.00 Secondary malignant neoplasm of unspecified lung; C79.31 Secondary malignant neoplasm of brain; D70.1 Agranulocytosis secondary to cancer chemotherapy; T45.1X5A Adverse effect of antineoplastic and immunosuppressive drugs, initial encounter; I10 Essential (primary) hypertension; Z85.3 Personal history of malignant neoplasm of breast; Z90.12 Acquired absence of left breast and nipple; Z17.1 Estrogen receptor negative status [ER-]

== ENCOUNTER 2017-07-13 13:09 | Inpatient (IN) | payer MEDICARE, OTHER ==
[2017-07-13 13:25] VITALS: BMI 26.5
[2017-07-13 13:49] LABS: BASO # 0.02 [, K/mm3] (0.0-2.0); BASO % 0.4 % (0.0-3.0); GRAN # 4.02 (1.4-6.5); HEMOGLOBIN 11.6 g/dL (12.0-16.0); LYMPH # 0.2 (1.2-3.4); LYMPH % 4.8 % (22.0-35.0); MEAN CELL VOLUME 102.8 fl (80.0-105.0); MEAN CORPUSCULAR HGB CONC 32.1 g/dl (31.0-37.0); MONO # 0.3 (0.1-0.6); MONO % 6.8 % (1.0-6.0); PLATELET COUNT 58 [, 10^3/uL] (120.0-450.0); RBC 3.51 [, 10^6/uL] (3.5-6.1); RED CELL DISTRIBUTION WIDTH 17.9 % (11.5-14.5); WHITE BLOOD COUNT 4.6 [, 10^3/ul] (4.5-11.0)
--- NOTE | 2017-07-13 14:07 | RAD ---
HISTORY: confusion - h/o metastatic breast CA COMPARISON: 07/07/2017 FINDINGS: LUNGS: No active pulmonary disease. PLEURA: No significant pleural effusion identified, no pneumothorax apparent. CARDIOVASCULAR: Normal. OSSEOUS STRUCTURES: No significant abnormalities. VISUALIZED UPPER ABDOMEN: Normal. OTHER FINDINGS: None. IMPRESSION: No active disease.
[2017-07-13] MEDS ORDERED: Sodium Chloride 0.9% 1,000 ML IV SCH (14:15)
--- NOTE | 2017-07-13 14:22 | CT ---
PROCEDURE: CT HEAD WITHOUT CONTRAST. HISTORY: r/o ICH h/o metastatic breast CA COMPARISON: None available. TECHNIQUE: Axial computed tomography images were obtained through the head/brain without intravenous contrast. Radiation dose: Total exam DLP = 889 mGy-cm. This CT exam was performed using one or more of the following dose reduction techniques: Automated exposure control, adjustment of the mA and/or kV according to patient size, and/or use of iterative reconstruction technique. FINDINGS: HEMORRHAGE: No intracranial hemorrhage. BRAIN: No mass effect or edema. Focal encephalomalacia is seen in the left posterior parietal lobe. VENTRICLES: Unremarkable. No hydrocephalus. CALVARIUM: Unremarkable. PARANASAL SINUSES: Unremarkable as visualized. No significant inflammatory changes. MASTOID AIR CELLS: Unremarkable as visualized. No inflammatory changes. OTHER FINDINGS: None. IMPRESSION: No acute intracranial findings
[2017-07-13 14:43] LABS: TROPONIN I < 0.01 ng/mL
[2017-07-13 14:46] LABS: BAND 9 % (0-2); LYMPHOCYTE 5 % (22.0-35.0); MONOCYTE 1 % (1.0-6.0); NEUTROPHIL 85 % (50.0-70.0); PLATELET ESTIMATE LOW (NORMAL)
--- NOTE | 2017-07-13 14:51 | ED PDOC ---
Arrival/HPI - General Chief Complaint: Altered Mental Status Time Seen by Provider: 07/13/17 13:14 Historian: Patient - History of Present Illness Narrative History of Present Illness (Text): 07/13/17 14:50 A 52 year old female, whose past medical history includes Metastatic breast CA ( undergoing chemo), was sent to the emergency department from Dr. Mahoney's office for periods of confusion. Patient here in the emergency department and denies any pain or fever. Patient is unsure why she was sent to the emergency department and at times doesn't recall seeing Dr. Mahoney today. Denies any other complaints at this time. No PMD Symptom Onset: Sudden Symptom Course: Unchanged Activities at Onset: Rest Associated Symptoms (Text): none Past Medical History - Provider Review Nursing Documentation Reviewed: Yes - Infectious Disease Hx of Infectious Diseases: None - Cardiac Hx Cardiac Disorders: Yes Hx Hypertension: Yes - Pulmonary Hx Respiratory Disorders: Yes (lung nodule DUE TO LEFT BREAST CA) - Neurological Hx Neurological Disorder: No Other/Comment: AAOX3 - HEENT Hx HEENT Disorder: No - Renal Hx Renal Disorder: No - Endocrine/Metabolic Hx Endocrine Disorders: No - Hematological/Oncological Hx Blood Disorders: Yes Hx Blood Transfusions: Yes Hx Blood Transfusion Reaction: No Hx Cancer: Yes (breast ca stage 4 with mets to brain) Hx Chemotherapy: Yes (LAST CHEMO 07/11/17) - Integumentary Hx Dermatological Disorder: Yes Other/Comment: LEFT BREAST MASTECTOMY - Musculoskeletal/Rheumatological Hx Musculoskeletal Disorders: No Hx Falls: No (DENIES) - Gastrointestinal Hx Gastrointestinal Disorders: No Other/Comment: breast ca and chemo - Genitourinary/Gynecological Hx Genitourinary Disorders: No - Psychiatric Hx Psychophysiologic Disorder: No Hx Substance Use: No - Surgical History Hx Breast Biopsy: Yes Hx Mastectomy: Yes (LEFT MASTECTOMY 2011) Hx Vascular Access Device: Yes Other/Comment: R sided port. - Anesthesia Hx Anesthesia: Yes Hx Anesthesia Reactions: No Hx Malignant Hyperthermia: No Family/Social History - Physician Review Nursing Documentation Reviewed: Yes Family/Social History: No Known Family HX Smoking Status: Never Smoked Hx Alcohol Use: No Hx Substance Use: No Allergies/Home Meds Allergies/Adverse Reactions: Allergies No Known Allergies Allergy (Verified 07/13/17 13:31) Home Medications: Home Meds Medication Instructions Recorded Confirmed Famotidine [Pepcid] 20 mg PO BID 07/06/17 07/13/17 Ondansetron [Zofran Tab] 4 mg PO TID 07/06/17 07/13/17 Review of Systems - Physician Review All systems were reviewed & negative as marked: Yes - Review of Systems Constitutional: Other (confusion). absent: Fevers Cardiovascular: absent: Chest Pain Gastrointestinal: absent: Abdominal Pain Physical Exam Vital Signs Reviewed: Yes Vital Signs Temp Pulse Resp BP Pulse Ox 07/13/17 16:04 85 16 130/76 97 07/13/17 13:23 98.9 F 111 H 18 110/67 97 Temperature: Afebrile Blood Pressure: Normal Pulse: Tachycardic Respiratory Rate: Normal Appearance: Positive for: Well-Appearing, Non-Toxic, Comfortable Pain Distress: None Mental Status: Positive for: Alert and Oriented X 3 Finger Stick Blood Glucose: 150 - Systems Exam Head: Present: Atraumatic, Normocephalic Pupils: Present: PERRL Extroacular Muscles: Present: EOMI Conjunctiva: Present: Normal Mouth: Present: Dry Neck: Present: Normal Range of Motion Respiratory/Chest: Present: Clear to Auscultation, Good Air Exchange. No: Respiratory Distress, Accessory Muscle Use Cardiovascular: Present: Regular Rate and Rhythm, Normal S1, S2. No: Murmurs Abdomen: Present: Normal Bowel Sounds. No: Tenderness, Distention, Peritoneal Signs Back: Present: Normal Inspection Upper Extremity: Present: Normal Inspection. No: Cyanosis, Edema Lower Extremity: Present: Normal Inspection. No: Edema Neurological: Present: GCS=15, CN II-XII Intact, Speech Normal Skin: Present: Warm, Dry, Normal Color. No: Rashes Psychiatric: Present: Alert, Oriented x 3, Normal Insight, Normal Concentration Medical Decision Making ED Course and Treatment: 07/13/17 14:48 Impression: A 52 year old female sent by Dr. Mahoney for periods of confusion. Patient is unsure why she was sent to the emergency department, denies any pain or any complaints. Plan: -- EKG -- CT head -- chest xray -- Urinalysis -- IV fluids -- Reassess and disposition Prior Visits: Notes and results from previous visits were reviewed. Patient was last seen in the emergency department on 07/07/17 for evaluation of neck pain. Progress Notes: EKG: Ordered, reviewed, and independently interpreted the EKG. Rate : 99 BPM Rhythm : NSR Interpretation : Normal intervals, normal axis 07/13/17 14:08 chest xray: Creator : Victor M Figueredo MD IMPRESSION: No active disease. 07/13/17 14:24 CT HEAD WITHOUT CONTRAST Creator : Victor M Figueredo MD FINDINGS: HEMORRHAGE: No intracranial hemorrhage. BRAIN: No mass effect or edema. Focal encephalomalacia is seen in the left posterior parietal lobe. VENTRICLES: Unremarkable. No hydrocephalus. CALVARIUM: Unremarkable. PARANASAL SINUSES: Unremarkable as visualized. No significant inflammatory changes. MASTOID AIR CELLS: Unremarkable as visualized. No inflammatory changes. IMPRESSION: No acute intracranial findings - Lab Interpretations Lab Results: 07/13/17 13:20 07/13/17 14:15 Lab Results 07/13/17 15:40: Urine Color Yellow, Urine Appearance Clear, Urine pH 7.0, Ur Specific [place] 1.015, Urine Protein Trace H, Urine Glucose (UA) Negative, Urine Ketones Negative, Urine Blood Negative, Urine Nitrate Negative, Urine Bilirubin Negative, Urine Urobilinogen 1.0 H, Ur Leukocyte Esterase Negative, Urine RBC Negative, Urine WBC 1 - 3, Ur Epithelial Cells 1 - 3, Urine Bacteria Few 07/13/17 14:15: Thyroxine (T4) 8.6 07/13/17 14:15: Sodium 135, Potassium 3.3 L, Chloride 98, Carbon Dioxide 28, Anion Gap 13, BUN 16, Creatinine 0.6 L, Est GFR ( Amer) > 60, Est GFR ( Non-Af Amer) > 60, Random Glucose 84, Calcium 8.8, Magnesium 1.8, Total Bilirubin 0.5, AST 24, ALT 29, Alkaline Phosphatase 76, Lactate Dehydrogenase 628, Total Creatine Kinase 42, Troponin I < 0.01, Total Protein 6.8, Albumin 3.7 , Globulin 3.1, Albumin/Globulin Ratio 1.2 07/13/17 13:20: WBC 4.6 D, RBC 3.51, Hgb 11.6 L, Hct 36.1, MCV 102.8, MCH 33.0 , MCHC 32.1, RDW 17.9 H, Plt Count 58 L, Gran % 88.0 H, Lymph % (Auto) 4.8 L, [place] % (Auto) 6.8 H, Eos % (Auto) 0.0 L, Baso % (Auto) 0.4, Gran # 4.02, Lymph # 0.2 L, [place] # 0.3, Eos # 0.0, Baso # 0.02, Neutrophils % (Manual) 85 H, Band Neutrophils % 9 H, Lymphocytes % (Manual) 5 L, Monocytes % (Manual) 1, Platelet Evaluation Low I have reviewed the lab results: Yes - RAD Interpretation Radiology Orders: 07/13/17 13:36 CHEST PORTABLE [RAD] Stat 07/13/17 13:38 HEAD W/O CONTRAST [CT] Stat - EKG Interpretation Interpreted by ED Physician: Yes Type: 12 lead EKG - Medication Orders Current Medication Orders: Acetaminophen (Tylenol 325mg Tab) 650 mg PO Q6H PRN PRN Reason: Fever >100.4 F Dexamethasone (Decadron) 4 mg PO BID DONG Famotidine (Pepcid) 20 mg PO BID DONG Vancomycin HCl (Vancomycin 1gm) 1 gm in 250 mls @ 167 mls/hr IVPB STAT STA PRN Reason: Protocol Stop: 07/13/17 19:27 Sodium Chloride (Sodium Chloride 0.9%) 1,000 mls @ 100 mls/hr IV .Q10H DONG Last Admin: 07/13/17 18:12 Dose: 100 mls/hr eMAR Start Stop Document 07/13/17 18:12 SE (Rec[facility] 07[facility]13[facility]17 18[id number] Intravenous Solution Start Date 07/13/17 Start Time 18:12 Insulin Human Regular (Humulin R Low) 0 units SC ACHS DONG PRN Reason: Protocol Nitroglycerin (Nitro-Bid 2% Oint) 1 ea TOP Q4H PRN PRN Reason: accelerated hypertension Ondansetron HCl (Zofran Inj) 4 mg IVP Q6H PRN PRN Reason: Nausea/Vomiting Oxycodone/Acetaminophen (Percocet 5/325 Mg Tab) 1 tab PO Q6H PRN PRN Reason: severe pain Stop: 07/16/17 18:16 Last Admin: 07/13/17 18:44 Dose: 1 tab MAR Pain Assessment Document 07/13/17 18:44 SE (Rec: 07/13/17 18:44 [id number] Pain Reassessment Is this a pain reassessment? No Sleep Is patient sleeping during reassessment? No Presence of Pain Presence of Pain Yes Pain Scale Used Pain Scale Used Numeric Location Pain Location Body Site Neck Polyethylene Glycol (Miralax) 17 gm PO DAILY DONG Discontinued Medications Sodium Chloride (Sodium Chloride 0.9%) 1,000 mls @ 125 mls/hr IV .Q8H DONG Last Admin: 07/13/17 14:16 Dose: 125 mls/hr eMAR Start Stop Document 07/13/17 14:16 SE (Rec: 07/13/17 14:16 SE [id number]) Intravenous Solution Start Date 07/13/17 Start Time 14:16 End Date 07/13/17 End time 18:12 Total Infusion Time 236 Piperacillin Sod/Tazobactam Sod (Zosyn 3.375 In Ns 100ml) 100 mls @ 200 mls/hr IVPB STAT STA PRN Reason: Protocol Stop: 07/13/17 18:27 Last Admin: 07/13/17 18:15 Dose: 200 mls/hr eMAR Start Stop Document 07/13/17 18:15 SE (Rec: 07/13/17 18:15 SE [id number]) Intravenous Solution Start Date 07/13/17 Start Time 18:15 Potassium Chloride (K-Dur 20 Meq Er Tab) 40 meq PO STAT STA Stop: 07/13/17 17:59 Last Admin: 07/13/17 18:14 Dose: 40 meq - Scribe Statement The provider has reviewed the documentation as recorded by the Esthela Gibbons Provider Scribe Attestation: All medical record entries made by the Jackieiboksana were at my direction and personally dictated by me. I have reviewed the chart and agree that the record accurately reflects my personal performance of the history, physical exam, medical decision making, and the department course for this patient. I have also personally directed, reviewed, and agree with the discharge instructions and disposition. Disposition/Present on Arrival - Present on Arrival Any Indicators Present on Arrival: No History of DVT/PE: No History of Uncontrolled Diabetes: No Urinary Catheter: No History of Decub. Ulcer: No History Surgical Site Infection Following: None - Disposition Have Diagnosis and Disposition been Completed?: Yes Diagnosis: Breast cancer, Dehydration, Delirium Disposition Time: 16:15 Condition: FAIR
[2017-07-13 15:06] LABS: ALB/GLOB RATIO 1.2 (1.1-1.8); ALBUMIN 3.7 g/dL (3.0-4.8); ALT/SGPT 29 U/L (7-56); AST/SGOT 24 U/L (14-36); BLOOD UREA NITROGEN 16 mg/dL (7-21); CALCIUM 8.8 mg/dL (8.4-10.5); GFR AFRICAN-AMERICAN > 60; GFR NON-AFRICAN AMERICAN > 60; MAGNESIUM 1.8 mg/dL (1.7-2.2)
[2017-07-13 16:21] LABS: URINE BILIRUBIN NEGATIVE (NEGATIVE); URINE BLOOD NEGATIVE (NEGATIVE); URINE GLUCOSE (UA) NEGATIVE (NEGATIVE); URINE LEUKOCYTE ESTERASE NEGATIVE Leu/uL (NEGATIVE); URINE NITRATE NEGATIVE (NEGATIVE); URINE PROTEIN TRACE mg/dL (<30 mg/dL)
[2017-07-13 16:24] LABS: URINE APPEARANCE CLEAR (CLEAR); URINE COLOR YELLOW (YELLOW)
[2017-07-13 17:17] LABS: URINE BACTERIA FEW (NEG); URINE RBC NEGATIVE /hpf (0-2)
[2017-07-13] MEDS ORDERED: Vancomycin 1gm in NS 250ml 1 GM/250 ML BAG IVPB STA ×2 (17:58→21:42)
[2017-07-13] MEDS ORDERED: Potassium Chloride 20 mEq ER Tab PO STA (17:58)
[2017-07-13] MEDS ORDERED: Piperacillin/Tazobact 3.375 gm 100 ML IVPB STA (17:58)
[2017-07-13] MEDS ORDERED: Nitroglycerin 2% Ointment Foilpak UD TOP PRN (18:08)
[2017-07-13] MEDS: Sodium Chloride 0.9% 1,000 ML IV SCH (18:12)
[2017-07-13] MEDS: Oxycodone/Acetaminophen 5/325 mg Tab PO PRN (18:44)
[2017-07-13] MEDS: Insulin Reg-LOW-Coverage SC SCH (22:13)
--- NOTE | 2017-07-13 22:59 | HP ---
HISTORY OF PRESENT ILLNESS: This 52-year-old female who was examined in the [facility] ER and her case was reviewed in detail with herself, emergency room physician, Sherman Roldan and her registered nurse. The patient was sent to the [facility] ER earlier today by her radiation oncologist, Dr. Mahoney. The patient is undergoing radiation therapy for metastatic breast cancer, which is under the oncological direction of Dr. Neymar Pena. The patient was recently hospitalized with metastatic breast cancer to the brain, long bones, cervical spine, and shoulders and was evaluated by Neurosurgery in the recent past who had discussion with Dr. Mahoney from Radiation Oncology as well as Dr. Pena from Oncology and the plan was decided to pursue a conservative compassionate course with continued chemotherapy, radiation therapy, and palliative supportive care. The patient today while under the direction of Dr. Mahoney was noted to be confused and disoriented and was sent to [facility] ER for further evaluation of the above. When I questioned the patient in the ER, she was aware where she was, that it was June, she thought it was Sunday not Sunday, and did know was 2017 and who the president was. Past medical records were reviewed as well as current head CT scan, which was done earlier today without contrast. It showed no acute intracranial hemorrhage, no mass effect, or edema and focal encephalomalacia was noted in the left posterior parietal lobe. A chest x-ray was also reviewed, it showed no infiltrates, no pleural effusions, no pneumothorax, and no evidence of congestive heart failure. When I further questioned the patient, she denied any fever, chills, chest pain, vomiting, or diarrhea and told me she was a nondrinker, nonsmoker, disabled, homemaker with no known allergies to medication. Review of her medical records showed that upon discharged 3 days ago, she was taking Norvasc 5 mg p.o. daily, Pepcid 20 mg p.o. b.i.d., Decadron 4 mg p.o. b.i.d. for a 10-day course, MiraLax 17 g p.o. daily, and Percocet 1 tablet every 4 hours for severe pain. REVIEW OF SYSTEMS: CONSTITUTIONAL REVIEW: The patient denied fever or chills. HEAD REVIEW: Has a history of breast cancer with brain mets. EYES REVIEW: No change in visual acuity. EARS REVIEW: No hearing loss. THROAT REVIEW: No swallowing difficulty. NECK REVIEW: She has a history of a C5 compression fracture that is being treated with a cervical spine immobilizer under the direction of Dr. Jori Branch from Neurosurgery and the patient has adequate upper arm motor strength and there has been no report of difficulty walking. CARDIAC REVIEW: Chronic hypertension. PULMONARY REVIEW: No hemoptysis. No cough. GASTROINTESTINAL: She has chronic GERD, but no hematemesis, melena, or diarrhea. GENITOURINARY: No dysuria. SKIN: No rash. VASCULAR: No claudication. PSYCHOLOGICAL: Chronic anxiety. NEUROLOGICAL: As per HPI. FAMILY HISTORY: Noncontributory. PHYSICAL EXAMINATION: VITAL SIGNS: At present; temperature 98.9, respirations 14, pulse 85, blood pressure 130/76 with a pulse ox 97% on room air. environmental monitoring specialist normal sinus rhythm. HEENT: Head; normocephalic and atraumatic. Eyes; no icterus. Ears clear. Throat; noninjected. NECK: Supple. HEART: Regular, S1 and S2. LUNGS: Clear. ABDOMEN: Soft. EXTREMITIES: No edema. SKIN: Without rash. NEUROLOGICAL: Grossly intact. VASCULAR: Legs warm to touch. PSYCHOLOGICAL: Alert, confused to date. Motor strength intact. LABORATORY DATA: White count 4600, hemoglobin 11.6, hematocrit 36.1, and platelets 58,000. Sodium 135, K 3.3, chloride 98, bicarb 28, BUN 16, creatinine 0.6, and random blood sugar 84. All liver function testing was normal including bilirubin 0.5, AST 24, ALT 29, and alk phos 76. Urinalysis unremarkable. IMPRESSION: A 52-year-old with stage IV metastatic breast cancer to brain, long bones now with confusional state and low potassium level, borderline anemia, and history of chronic hypertension, chronic thrombocytopenia, deconditioning, chronic C5 compression fracture, and gastroesophageal reflux disease. PLAN: As discussed with the patient, nursing, and from the emergency room will be to admit this patient to the cardiac unit. She is ordered to have physical therapy for ambulation safety and will be fully cultured of blood and urine and has received stat dosing of vancomycin and Zosyn for completeness sake. She will remain on seizure precautions, neuro checks q. shift, fall precautions, and has been ordered to have bathroom privileges with assistance only. She is ordered to have a soft bland, heart-healthy diet. I have ordered 0.9 saline at 100 mL/hour, Pepcid 20 mg p.o. b.i.d., nitroglycerin 1 inch to chest wall q.4 hours p.r.n. accelerated hypertension and systolic blood pressure should be greater than 160 or diastolic blood pressure should be greater than 100. She is ordered to have MiraLax 17 g p.o. daily, K-Dur 40 mEq p.o. stat x1 dose, regular low-dose insulin protocol a.c. meals and at bedtime, and Decadron will continue as previously outlined 4 mg p.o. b.i.d. She is ordered to have an RPR test, blood in urine cultures, CBC in the a.m., basic metabolic panel in the a.m., vitamin B12 level and folic acid level. Consultations with Dr. Barrera from Neurology and Dr. Neymar Pena from Oncology have been requested as well. Based on her clinical progress and consulting physician recommendations, additional workup will be entertained. Greater than 75 minutes was spent in the care management, review of x-rays orders, EMR records, and discussion and outlining of orders for this patient today. All questions were answered. Pam Mckenzie MD MTDD
[2017-07-14] MEDS: Sodium Chloride 0.9% 1,000 ML IV SCH (05:16)
[2017-07-14 08:11] LABS: BLOOD UREA NITROGEN 11 mg/dL (7-21); CALCIUM 7.8 mg/dL (8.4-10.5); GFR AFRICAN-AMERICAN > 60; GFR NON-AFRICAN AMERICAN > 60
[2017-07-14 08:46] LABS: HEMOGLOBIN 9.6 g/dL (12.0-16.0); MEAN CELL VOLUME 101.4 fl (80.0-105.0); MEAN CORPUSCULAR HEMOGLOBIN 32.4 pg (25.0-35.0); PLATELET COUNT 59 [, 10^3/uL] (120.0-450.0); RBC 2.96 [, 10^6/uL] (3.5-6.1); RED CELL DISTRIBUTION WIDTH 17.7 % (11.5-14.5)
[2017-07-14] MEDS: Insulin Reg-LOW-Coverage SC SCH ×4 (08:48→22:39)
[2017-07-14 09:28] LABS: WHITE BLOOD COUNT 2.9 [, 10^3/ul] (4.5-11.0)
[2017-07-14] MEDS: POLYETHYLENE GLYCOL 3350 17 GM/Dose PACKET PO SCH (09:53)
[2017-07-14] MEDS: Oxycodone/Acetaminophen 5/325 mg Tab PO PRN ×2 (09:53→16:40)
--- NOTE | 2017-07-14 10:41 | CARD ---
APPROVED REPORT EKG Measurement Heart [id number] <Conclusion> Normal sinus rhythm LVH by voltage Septal infarct, age undetermined NSSTW changes Prolonged QT
[2017-07-14 11:41] LABS: FOLATE 9.9 ng/mL
[2017-07-14 12:15] LABS: PLATELET COUNT MANUAL 68 [, K/mm3] (120-450)
--- NOTE | 2017-07-14 20:09 | CP.PCM.CON ---
History of Present Illness - History of Present Illness History of Present Illness: Mrs. Kennedy is a 52-year-old woman with a past medical history of metastatic breast cancer, who was at her physicians office and was noted to be confused and behaving strangely. She was referred to the ED. CT scan of the head showed a left frontal area of hypodensity concerning for either metastasis or stroke. Currently, she is back to baseline, awake, alert, oriented with no focal deficits. Review of Systems - Review of Systems All systems: reviewed and no additional remarkable complaints except Past Patient History - Infectious Disease Hx of Infectious Diseases: None - Past Medical History & Family History Past Medical History?: Yes - Past Social History Smoking Status: Never Smoked - CARDIAC Hx Cardiac Disorders: Yes Hx Hypertension: Yes - PULMONARY Hx Respiratory Disorders: No - NEUROLOGICAL Hx Neurological Disorder: No - HEENT Hx HEENT Problems: No - RENAL Hx Chronic Kidney Disease: No - ENDOCRINE/METABOLIC Hx Endocrine Disorders: No - HEMATOLOGICAL/ONCOLOGICAL Hx Blood Disorders: Yes Hx Cancer: Yes (breast ca stage 4 with mets to brain) Hx Chemotherapy: Yes - INTEGUMENTARY Hx Dermatological Problems: Yes Other/Comment: LEFT BREAST MASTECTOMY - MUSCULOSKELETAL/RHEUMATOLOGICAL Hx Musculoskeletal Disorders: Yes Hx Falls: Yes - GASTROINTESTINAL Hx Gastrointestinal Disorders: No Other/Comment: breast ca and chemo - GENITOURINARY/GYNECOLOGICAL Hx Genitourinary Disorders: No - PSYCHIATRIC Hx Psychophysiologic Disorder: No Hx Substance Use: No - SURGICAL HISTORY Hx Mastectomy: Yes (LEFT MASTECTOMY 2011) Other/Comment: R sided port. - ANESTHESIA Hx Anesthesia: Yes Hx Anesthesia Reactions: No Hx Malignant Hyperthermia: No Meds Allergies/Adverse Reactions: Allergies Allergy/AdvReac Type Severity Reaction Status Date / Time No Known Allergies Allergy Verified 07/13/17 13:31 - Medications Medications: Current Medications Acetaminophen (Tylenol 325mg Tab) 650 mg PO Q6H PRN PRN Reason: Fever >100.4 F Dexamethasone (Decadron) 4 mg PO BID [facility] Last Admin: 07/14/17 17:41 Dose: 4 mg Famotidine (Pepcid) 20 mg PO BID [facility] Last Admin: 07/14/17 17:41 Dose: 20 mg Sodium Chloride (Sodium Chloride 0.9%) 1,000 mls @ 100 mls/hr IV .Q10H [facility] Last Admin: 07/14/17 05:16 Dose: 100 mls/hr Insulin Human Regular (Humulin R Low) 0 units SC ACHS [facility] PRN Reason: Protocol Last Admin: 07/14/17 17:27 Dose: Not Given Nitroglycerin (Nitro-Bid 2% Oint) 1 ea TOP Q4H PRN PRN Reason: accelerated hypertension Ondansetron HCl (Zofran Inj) 4 mg IVP Q6H PRN PRN Reason: Nausea/Vomiting Oxycodone/Acetaminophen (Percocet 5/325 Mg Tab) 1 tab PO Q6H PRN PRN Reason: severe pain Stop: 07/16/17 18:16 Last Admin: 07/14/17 16:40 Dose: 1 tab Polyethylene Glycol (Miralax) 17 gm PO DAILY [facility] Last Admin: 07/14/17 09:53 Dose: 17 gm Physical Exam - Constitutional Appears: Well - Head Exam Head Exam: ATRAUMATIC, NORMAL INSPECTION, NORMOCEPHALIC - Eye Exam Eye Exam: EOMI, Normal appearance, PERRL - ENT Exam ENT Exam: Mucous Membranes Moist, Normal Exam - Respiratory Exam Respiratory Exam: Clear to Auscultation Bilateral, NORMAL BREATHING PATTERN - Cardiovascular Exam Cardiovascular Exam: REGULAR RHYTHM, +S1, +S2 - GI/Abdominal Exam GI & Abdominal Exam: Normal Bowel Sounds, Soft. absent: Tenderness - Rectal Exam Rectal Exam: Deferred - Extremities Exam Extremities exam: Positive for: normal inspection - Neurological Exam Neurological exam: Alert, CN II-XII Intact, Normal Gait, Oriented x3, Reflexes Normal Results - Vital Signs Recent Vital Signs: Last Vital Signs Temp 98.4 F 07/14/17 16:30 Pulse 67 07/14/17 18:00 Resp 19 07/14/17 16:30 BP 120/76 07/14/17 16:30 Pulse Ox 99 07/14/17 16:30 - Labs Result Diagrams: 07/14/17 07:30 07/14/17 07:30 Labs: Laboratory Results - last 24 hr 07/13/17 07/13/17 07/14/17 18:20 21:07 07:30 WBC 2.9 L* D RBC 2.96 L Hgb 9.6 L D Hct 30.0 L MCV 101.4 MCH 32.4 MCHC 32.0 RDW 17.7 H Plt Count 59 L Manual Plt Count 68 L* Sodium Potassium Chloride Carbon Dioxide Anion Gap BUN Creatinine Est GFR ( Amer) Est GFR (Non-Af Amer) POC Glucose (mg/dL) 192 H Random Glucose Calcium RPR Nonreactive 07/14/17 07/14/17 07/14/17 07:30 07:57 12:11 WBC RBC Hgb Hct MCV MCH MCHC RDW Plt Count Manual Plt Count Sodium 138 Potassium 4.3 Chloride 106 Carbon Dioxide 26 Anion Gap 10 BUN 11 Creatinine 0.5 L Est GFR ( Amer) > 60 Est GFR (Non-Af Amer) > 60 POC Glucose (mg/dL) 127 H 133 H Random Glucose 128 H Calcium 7.8 L RPR 07/14/17 17:20 WBC RBC Hgb Hct MCV MCH MCHC RDW Plt Count Manual Plt Count Sodium Potassium Chloride Carbon Dioxide Anion Gap BUN Creatinine Est GFR ( Amer) Est GFR (Non-Af Amer) POC Glucose (mg/dL) 118 H Random Glucose Calcium RPR Assessment & Plan (1) Acute encephalopathy Assessment and Plan: This has resolved for now. The differential is seizure from metastatic disease , or stroke due to hypercoagulable state. I recommend the followin. MRI of the brain with and without contrast 2. EEG awake and drowsy for 1 hour 3. PT/OT eval 4. Cognitive testing 5. Seizure precautions and if the MRI is consistent with metastatic disease, we can start her on Keppra 500 mg BID. Thank you. Status: Acute Priority: Medium
--- NOTE | 2017-07-15 02:39 | CP.PCM.CON ---
History of Present Illness - History of Present Illness History of Present Illness: 52 year old female with a history of stage IV triple negative breast cancer with LN, lung, bone brain metastasis, cervical compression fracture on salvage radiation and chemotherapy, admitted with altered mental status now resolved. She was found to be confused at her radiation oncology appointment and referred to the hospital. She is no longer confused and is undergoing neurolgic evaluation. Past medical history: Stage IV breast cancer Past surgical history: Portacath placement Family history: Denies hematologic and oncologic problems Social history: Denies tobacco, alcohol, and illicit drug use. Allergies: NKA Review of systems: All remaining review of systems including HEENT, cardiovascular, respiratory, gastrointestinal, genitourinary, musculoskeletal, dermatologic, neurologic, and psychiatric are negative unless mentioned in the HPI. Past Patient History - Infectious Disease Hx of Infectious Diseases: None - Past Medical History & Family History Past Medical History?: Yes - Past Social History Smoking Status: Never Smoked - CARDIAC Hx Cardiac Disorders: Yes Hx Hypertension: Yes - PULMONARY Hx Respiratory Disorders: No - NEUROLOGICAL Hx Neurological Disorder: No - HEENT Hx HEENT Problems: No - RENAL Hx Chronic Kidney Disease: No - ENDOCRINE/METABOLIC Hx Endocrine Disorders: No - HEMATOLOGICAL/ONCOLOGICAL Hx Blood Disorders: Yes Hx Cancer: Yes (breast ca stage 4 with mets to brain) Hx Chemotherapy: Yes - INTEGUMENTARY Hx Dermatological Problems: Yes Other/Comment: LEFT BREAST MASTECTOMY - MUSCULOSKELETAL/RHEUMATOLOGICAL Hx Musculoskeletal Disorders: Yes Hx Falls: Yes - GASTROINTESTINAL Hx Gastrointestinal Disorders: No Other/Comment: breast ca and chemo - GENITOURINARY/GYNECOLOGICAL Hx Genitourinary Disorders: No - PSYCHIATRIC Hx Psychophysiologic Disorder: No Hx Substance Use: No - SURGICAL HISTORY Hx Mastectomy: Yes (LEFT MASTECTOMY 2011) Other/Comment: R sided port. - ANESTHESIA Hx Anesthesia: Yes Hx Anesthesia Reactions: No Hx Malignant Hyperthermia: No Meds Allergies/Adverse Reactions: Allergies Allergy/AdvReac Type Severity Reaction Status Date / Time No Known Allergies Allergy Verified 07/13/17 13:31 - Medications Medications: Current Medications Acetaminophen (Tylenol 325mg Tab) 650 mg PO Q6H PRN PRN Reason: Fever >100.4 F Dexamethasone (Decadron) 4 mg PO BID [facility] Last Admin: 07/14/17 17:41 Dose: 4 mg Famotidine (Pepcid) 20 mg PO BID [facility] Last Admin: 07/14/17 17:41 Dose: 20 mg Sodium Chloride (Sodium Chloride 0.9%) 1,000 mls @ 100 mls/hr IV .Q10H [facility] Last Admin: 07/14/17 05:16 Dose: 100 mls/hr Insulin Human Regular (Humulin R Low) 0 units SC ACHS [facility] PRN Reason: Protocol Last Admin: 07/14/17 22:39 Dose: Not Given Nitroglycerin (Nitro-Bid 2% Oint) 1 ea TOP Q4H PRN PRN Reason: accelerated hypertension Ondansetron HCl (Zofran Inj) 4 mg IVP Q6H PRN PRN Reason: Nausea/Vomiting Oxycodone/Acetaminophen (Percocet 5/325 Mg Tab) 1 tab PO Q6H PRN PRN Reason: severe pain Stop: 07/16/17 18:16 Last Admin: 07/14/17 16:40 Dose: 1 tab Polyethylene Glycol (Miralax) 17 gm PO DAILY [facility] Last Admin: 07/14/17 09:53 Dose: 17 gm Physical Exam - Head Exam Head Exam: ATRAUMATIC - Eye Exam Eye Exam: Normal appearance - ENT Exam ENT Exam: Mucous Membranes Dry - Respiratory Exam Respiratory Exam: NORMAL BREATHING PATTERN - Cardiovascular Exam Cardiovascular Exam: +S1, +S2 - GI/Abdominal Exam GI & Abdominal Exam: Normal Bowel Sounds - Extremities Exam Extremities exam: Positive for: normal inspection - Neurological Exam Neurological exam: Oriented x3 - Psychiatric Exam Psychiatric exam: Normal Affect, Normal Mood Results - Vital Signs Recent Vital Signs: Last Vital Signs Temp 98.4 F 07/14/17 16:30 Pulse 67 07/14/17 18:00 Resp 19 07/14/17 16:30 BP 120/76 07/14/17 16:30 Pulse Ox 99 07/14/17 16:30 - Labs Result Diagrams: 07/14/17 07:30 07/14/17 07:30 Labs: Laboratory Results - last 24 hr 07/13/17 07/14/17 07/14/17 18:20 07:30 07:30 WBC 2.9 L* D RBC 2.96 L Hgb 9.6 L D Hct 30.0 L MCV 101.4 MCH 32.4 MCHC 32.0 RDW 17.7 H Plt Count 59 L Manual Plt Count 68 L* Sodium 138 Potassium 4.3 Chloride 106 Carbon Dioxide 26 Anion Gap 10 BUN 11 Creatinine 0.5 L Est GFR ( Amer) > 60 Est GFR (Non-Af Amer) > 60 POC Glucose (mg/dL) Random Glucose 128 H Calcium 7.8 L RPR Nonreactive 07/14/17 07/14/17 07/14/17 07:57 12:11 17:20 WBC RBC Hgb Hct MCV MCH MCHC RDW Plt Count Manual Plt Count Sodium Potassium Chloride Carbon Dioxide Anion Gap BUN Creatinine Est GFR ( Amer) Est GFR (Non-Af Amer) POC Glucose (mg/dL) 127 H 133 H 118 H Random Glucose Calcium RPR 07/14/17 22:03 WBC RBC Hgb Hct MCV MCH MCHC RDW Plt Count Manual Plt Count Sodium Potassium Chloride Carbon Dioxide Anion Gap BUN Creatinine Est GFR ( Amer) Est GFR (Non-Af Amer) POC Glucose (mg/dL) 106 Random Glucose Calcium RPR Assessment & Plan (1) Pancytopenia Assessment and Plan: secondary to chemotherapy and radiation no current indication for growth factor/transfusion support Status: Acute (2) Breast cancer Assessment and Plan: stage IV brain, bone, lung metastasis outpatient treatment Thank you for this interesting consult. Status: Chronic
[2017-07-15] MEDS: Sodium Chloride 0.9% 1,000 ML IV SCH (06:46)
[2017-07-15] MEDS: Oxycodone/Acetaminophen 5/325 mg Tab PO PRN ×2 (06:47→14:10)
[2017-07-15 07:49] LABS: BLOOD UREA NITROGEN 12 mg/dL (7-21); CALCIUM 8.7 mg/dL (8.4-10.5); GFR AFRICAN-AMERICAN > 60; GFR NON-AFRICAN AMERICAN > 60
[2017-07-15 07:57] LABS: GRAN # 1.45 (1.4-6.5); GRAN % 71.1 % (50.0-68.0); HEMOGLOBIN 9.1 g/dL (12.0-16.0); LYMPH # 0.3 (1.2-3.4); LYMPH % 16.2 % (22.0-35.0); MEAN CELL VOLUME 101.8 fl (80.0-105.0); MEAN CORPUSCULAR HGB CONC 31.5 g/dl (31.0-37.0); MONO # 0.3 (0.1-0.6); MONO % 12.7 % (1.0-6.0); PLATELET COUNT 67 [, 10^3/uL] (120.0-450.0); RBC 2.84 [, 10^6/uL] (3.5-6.1); RED CELL DISTRIBUTION WIDTH 17.7 % (11.5-14.5)
[2017-07-15] MEDS: Insulin Reg-LOW-Coverage SC SCH ×4 (08:06→21:37)
[2017-07-15] MEDS ORDERED: Magnesium Sulfate 2 GM in Sodium Chloride 0.9% 100 ML IVPB ONE (08:48)
--- NOTE | 2017-07-15 08:52 | CP.PCM.PN ---
Subjective - Date & Time of Evaluation Date of Evaluation: 07/15/17 Time of Evaluation: 08:49 - Subjective Subjective: Ms. Kennedy was seen and examined at the bedside. She is alert, oriented in all spheres. She claims of experiencing moderate headache in the right frontal area , non-radiating, with pain scale 6-8/10. She denies any blurred vision, seizure- like activity, nausea, numbness, weakness, lightheadedness, weakness. She is able to answer questions appropriately and follow simple commands. She is able to ambulate to and from bed to bathroom with steady gait. There was no untoward events overnight. Objective - Vital Signs/Intake and Output Vital Signs (last 24 hours): Temp Pulse Resp BP Pulse Ox 98.4 F 67 19 120/76 99 07/14/17 16:30 07/14/17 18:00 07/14/17 16:30 07/14/17 16:30 07/14/17 16:30 Intake and Output: 07/15/17 07/15/17 06:59 18:59 Intake Total 420 Output Total 0 Balance 420 - Medications Medications: Current Medications Acetaminophen (Tylenol 325mg Tab) 650 mg PO Q6H PRN PRN Reason: Fever >100.4 F Dexamethasone (Decadron) 4 mg PO BID [facility] Last Admin: 07/14/17 17:41 Dose: 4 mg Famotidine (Pepcid) 20 mg PO BID [facility] Last Admin: 07/14/17 17:41 Dose: 20 mg Sodium Chloride (Sodium Chloride 0.9%) 1,000 mls @ 100 mls/hr IV .Q10H [facility] Last Admin: 07/15/17 06:46 Dose: 100 mls/hr Magnesium Sulfate 2 gm/ Sodium (Chloride) 104 mls @ 102 mls/hr IVPB ONCE ONE Stop: 07/15/17 09:49 Insulin Human Regular (Humulin R Low) 0 units SC [facility] PRN Reason: Protocol Last Admin: 07/15/17 08:06 Dose: Not Given Nitroglycerin (Nitro-Bid 2% Oint) 1 ea TOP Q4H PRN PRN Reason: accelerated hypertension Ondansetron HCl (Zofran Inj) 4 mg IVP Q6H PRN PRN Reason: Nausea/Vomiting Oxycodone/Acetaminophen (Percocet 5/325 Mg Tab) 1 tab PO Q6H PRN PRN Reason: severe pain Stop: 07/16/17 18:16 Last Admin: 07/15/17 06:47 Dose: 1 tab Polyethylene Glycol (Miralax) 17 gm PO DAILY [facility] Last Admin: 07/14/17 09:53 Dose: 17 gm - Labs Labs: 07/15/17 07:00 07/15/17 07:00 - Constitutional Appears: No Acute Distress - Head Exam Head Exam: NORMAL INSPECTION - Neurological Exam Neurological Exam: Alert, Awake, CN II-XII Intact, Oriented x3 Neuro motor strength exam: Left Upper Extremity: 5, Right Upper Extremity: 5, Left Lower Extremity: 5, Right Lower Extremity: 5 Additional comments: She is able to answer and follow commands. Assessment and Plan (1) Acute encephalopathy Assessment & Plan: Case discussed with Dr. Barrera, continue all current medical treatment. Recommend MRI of the brain and EEG to further evaluate any pathology of the brain. Status: Acute
[2017-07-15] MEDS: POLYETHYLENE GLYCOL 3350 17 GM/Dose PACKET PO SCH (09:17)
[2017-07-15 10:13] VITALS: RESP 20
[2017-07-15] MEDS ORDERED: Gadodiamide 287 MG/ML VIAL (15ML) IV ONE (10:48)
[2017-07-15] MEDS ORDERED: Sodium Chloride 0.9% 1,000 ML IV SCH (16:13)
--- NOTE | 2017-07-15 16:28 | MRI ---
EXAM: MR Head Without and With Intravenous Contrast EXAM DATE/TIME: Examination ordered 07/14/2017 7:19 PM. Image number total count reviewed [id number] CLINICAL HISTORY: The patient is 52 years old and is female; Signs and symptoms; Syncope and collapse; Additional info: Rule out brain mets Facility exam id and description: Mri br cs brain w wo contrast TECHNIQUE: Magnetic resonance images of the head/brain without and with intravenous contrast in multiple planes. CONTRAST: 15 mL of optimark administered intravenously. COMPARISON: MR - BRAIN W WO CONTRAST 2017-04-25 12:30 FINDINGS: BRAIN: Interval, there has been improvement in the appearance of several previously noted brain metastases, although the degree of T2 prolongation with these lesions is roughly stable on T2 and FLAIR. The previously noted RIGHT cerebellar hemisphere enhancing metastasis in the inferior cerebellum at the cortical margin now measures 11 mm x 5 mm with markedly decreased enhancement. It previously measured 14 x 6 mm. Parenchymal LEFT cerebellar metastasis now measures 9 mm on image 7/25 of series 10 and previously measured 10 mm. LEFT posterior parietal punctate cortical metastasis previously measured 3 mm and now measures 1 mm on image 12 of series 10. Previously noted RIGHT sylvian fissure enhancing nodular small lesions are NO longer identified although T2 prolongation remains. There is focal encephalomalacia in the LEFT posterior parietal lobe medially. There are no intra-or extra-axial fluid collections. No intracranial hemorrhage is identified on gradient echo. The osman/white matter differentiation is intact. To the extent that they may be viewed on routine MR images, the intracranial vascular flow-voids have a normal appearance. There is no restricted diffusion identified. MIDLINE SHIFT: There is no midline shift. VENTRICLES: The ventricles, sulci, and basilar cisterns are prominent, compatible with mild global atrophy for age. BONES: RIGHT parietal calvarial enhancing focus is stable on image 21. This could be a calvarial metastasis. Additional lesion in the frontal calvarium on the RIGHT on image 20 measuring 5 mm median increased size metastasis from the prior. SINUSES: Mild mucoperiosteal thickening and fluid is now noted in the maxillary and ethmoid air cells. MASTOID AIR CELLS: Stable RIGHT mastoid effusion. ORBITS: The globes and orbits are intact. SELLA: The midline structures including the clivus, pituitary gland, corpus callosum, superior sagittal sinus and cerebellar tonsils are normal. IMPRESSION: 1. Mild mucoperiosteal thickening and fluid is now noted in the maxillary and ethmoid air cells, new since the prior study. Stable RIGHT mastoid effusion. 2. Interval improvement in appearance of brain metastases as described. Calvarial lesions as noted above.
--- NOTE | 2017-07-15 22:30 | CP.PCM.PN ---
Subjective - Date & Time of Evaluation Date of Evaluation: 07/15/17 Time of Evaluation: 17:15 - Subjective Subjective: Has some neck pain AAOx3 MRI findings noted Objective - Vital Signs/Intake and Output Vital Signs (last 24 hours): Temp Pulse Resp BP Pulse Ox 97.9 F 57 L 20 115/68 96 07/15/17 16:58 07/15/17 18:00 07/15/17 16:58 07/15/17 16:58 07/15/17 16:58 - Medications Medications: Current Medications Acetaminophen (Tylenol 325mg Tab) 650 mg PO Q6H PRN PRN Reason: Fever >100.4 F Dexamethasone (Decadron) 4 mg PO BID [facility] Last Admin: 07/15/17 17:09 Dose: 4 mg Famotidine (Pepcid) 20 mg PO BID [facility] Last Admin: 07/15/17 17:09 Dose: 20 mg Sodium Chloride (Sodium Chloride 0.9%) 1,000 mls @ 50 mls/hr IV .Q20H [facility] Insulin Human Regular (Humulin R Low) 0 units SC ACHS [facility] PRN Reason: Protocol Last Admin: 07/15/17 21:37 Dose: Not Given Nitroglycerin (Nitro-Bid 2% Oint) 1 ea TOP Q4H PRN PRN Reason: accelerated hypertension Ondansetron HCl (Zofran Inj) 4 mg IVP Q6H PRN PRN Reason: Nausea/Vomiting Oxycodone/Acetaminophen (Percocet 5/325 Mg Tab) 1 tab PO Q6H PRN PRN Reason: severe pain Stop: 07/16/17 18:16 Last Admin: 07/15/17 14:10 Dose: 1 tab Polyethylene Glycol (Miralax) 17 gm PO DAILY [facility] Last Admin: 07/15/17 09:17 Dose: 17 gm - Labs Labs: 07/15/17 07:00 07/15/17 07:00 - Head Exam Head Exam: ATRAUMATIC - Eye Exam Eye Exam: Normal appearance - ENT Exam ENT Exam: Mucous Membranes Dry - Respiratory Exam Respiratory Exam: NORMAL BREATHING PATTERN - Cardiovascular Exam Cardiovascular Exam: +S1, +S2 - GI/Abdominal Exam GI & Abdominal Exam: Normal Bowel Sounds Assessment and Plan (1) Pancytopenia Assessment & Plan: secondary to chemotherapy cont. to monitor no growth factor/transfusion indication Status: Acute (2) Breast cancer Assessment & Plan: stage IV MRI brain shows improvement in brain mets. Status: Chronic
--- NOTE | 2017-07-16 08:06 | PN ---
DVVATE: 07/14/2017 SUBJECTIVE: This 52-year-old female was examined on the cardiac coker, and her exam was done in the presence of her registered nurse, Alivia An. The patient was lying in bed, wearing her cervical spine immobilizing collar; denying any headache, fever, chills, chest pain, or shortness of breath. She was in a normal sinus rhythm on the commercial counsel. She was attempting to eat her lunch. She denied any headache or confusion. OBJECTIVE: VITAL SIGNS: In a normal sinus rhythm with a temperature of 98.0, respirations 20, pulse 72, blood pressure 112/79 with a pulse ox of 99%. HEENT: Head was normocephalic, atraumatic. Eyes: No icterus. Ears: Clear. Throat: Noninjected. NECK: Supple. HEART: Regular S1, S2. LUNGS: Clear. ABDOMEN: Soft. EXTREMITIES: No edema. SKIN: Without rash. NEUROLOGIC: Intact. PSYCHOLOGIC: Alert and oriented x3. VASCULAR: Legs warm to touch. LABORATORY DATA: White count 2900, previously 4600; hemoglobin 9.6; hematocrit 30; platelets 59,000, manual platelet count 68,000. Sodium 138, K 4.3, chloride 106, bicarb 26, BUN 11, creatinine 0.5, random blood sugar 128. Vitamin B12 level greater than 1000. Folic acid level 9.9, normal. T4 of 8.6, normal. Urinalysis unremarkable. IMPRESSION: A 52-year-old female with history of metastatic breast cancer stage IV with metastases to brain, lung, bones, and cervical spine with history of C5 vertebral body fracture for which the patient was recommended by Neurosurgery to wear a [place] collar which she never obtained, also with comorbidities of chronic thrombocytopenia, chronic leukopenia, chronic anemia and admission for metabolic encephalopathy. PLAN: The plan as discussed with the patient and nurse at bedside will be to have physical therapy, attempt to obtain a [place] collar for this patient for her cervical spine issue. She remains on seizure precautions, neuro checks, q. shift, fall precautions, and bathroom privileges with assistance. She is on a soft bland diabetic, heart-healthy diet. She is ordered to receive 0.9 saline at 100 mL/hour, Percocet 1 tablet p.o. q.6 hours p.r.n. severe pain, Tylenol 650 p.o. q.6 hours p.r.n. [id number] pain or fever greater than 101, Pepcid 20 mg p.o. b.i.d., nitroglycerin 1 inch to chest wall q.4 hours p.r.n. accelerated hypertension if systolic blood pressure should be greater than 160 or diastolic blood pressure greater than 100, MiraLax 17 gm p.o. daily, regular low-dose insulin protocol a.c. meals and at bedtime, and Decadron 4 mg p.o. b.i.d. The patient is awaiting results of blood and urine cultures. She will be seen by Neurology and Oncology for followup of her altered mental status and metastatic breast cancer issues including anemia, leukopenia and chronic thrombocytopenia, and she is ordered to have physical therapy for ambulation safety. She will have a repeat basic metabolic panel performed in the a.m., and ultimate plan will be for discharge to home when medically stable. Her overall prognosis remains poor, and she will continue to be treated in a conservative and compassionate way with Dr. Pena from Oncology outlining future breast cancer management for this markedly debilitated and deconditioned patient. Overall prognosis, therefore remained stable at present. Greater than 35 minutes was spent in the care management, review of x-rays, labs, and instructions for the patient with her nurse at bedside today. All questions were answered. Pam Mckenzie MD [facility]
[2017-07-16] MEDS: Insulin Reg-LOW-Coverage SC SCH ×2 (08:08→12:59)
--- NOTE | 2017-07-16 08:09 | PN ---
DATE: 07/15/2017 SUBJECTIVE: This 52-year-old female who was examined on the cardiac coker in the presence of her nurse, Alivia An, registered nurse. The patient is alert, more coherent and with improved cognition. She denies any headache, fever, chills, chest pain, or shortness of breath and has had no complaints of nausea, vomiting, dizziness, or shortness of breath. She remains in a normal sinus rhythm on the cafeteria monitor. OBJECTIVE: VITAL SIGNS: Temperature 98.4, respirations 20, pulse 57, and blood pressure 121/66 with a pulse ox of 100%. HEENT: Head: Normocephalic and atraumatic. Eyes: No icterus. Ears: Clear. Throat: Noninjected. NECK: Supple. HEART: Regular, S1 and S2. LUNGS: Clear. ABDOMEN: Soft. EXTREMITIES: No edema. SKIN: Without rash. NEUROLOGICAL: Intact. PSYCHOLOGICAL: Alert. VASCULAR: Legs warm to touch. LABORATORY DATA: White count 2000, hemoglobin 9.1, hematocrit 28.9, and platelets 67,000. Sodium 142, K 4.1, chloride 110, bicarb 25, BUN 12, creatinine 0.5, random blood sugar 73, and calcium normal 8.7. Urinalysis unremarkable. RPR nonreactive. Head CT was reviewed. There is evidence of focal encephalomalacia in the left posterior parietal lobe, possibly consistent with history of metastatic breast cancer to brain. Brain MRI performed today is pending. Chest x-ray shows no acute infiltrate. EKG, normal sinus rhythm with nonspecific ST-T wave changes. IMPRESSION: The patient is a 52-year-old female with metastatic breast cancer to bone, brain and lung with a newly noted on previous admission cervical compression fracture of her cervical spine, now on salvage radiation and chemotherapy under the direction of Dr. Neymar Pena, her oncologist with now resolved altered mental status, rule out worsening brain metastasis, and rule out seizure. Microbiology study showed no growth at 24 hours. Case has been reviewed with Hematology, Oncology, and Neurology. PLAN: The plan will be to maintain the patient on the cardiac coker and she has chronic pancytopenia secondary to her recent chemotherapy as per her oncologist. The plan will be to maintain the patient on the cardiac coker and repeat CBC in a.m. She continues on Decadron 4 mg p.o. b.i.d. and regular low-dose insulin coverage a.c. meals and at bedtime. She continues on MiraLax 17 g p.o. daily, nitroglycerin 1 inch to chest wall q.4 hours p.r.n. accelerated hypertension if systolic blood pressure greater than 160 or diastolic blood pressure greater than 100. She continues on Pepcid 20 mg p.o. b.i.d., 0.9 saline will be dose reduced now that she is eating and drinking better to 50 mL p.o. q. hour. We will await the results of her brain with and without contrast to rule out brain mets. She is also scheduled for an EEG given her recent confusion to rule out seizure. She remains on a soft bland diet with bathroom privileges, fall precautions, and neuro checks q. shift as well as seizure precautions and is ordered to have physical therapy for ambulation and staircase safety. Once the patient has completed her neurological and hematology follow-ups, she will be ready for discharge for follow up with Dr. Pena and Dr. Mahoney, her her oncologist and radiation oncologist for continued outpatient therapy for continued outpatient palliative therapy in this gravely ill, but stable patient at present. Greater than 30 minutes was spent in the care management, review of x-rays, labs, and consultations today with the patient and nursing. All questions were answered. Prognosis remains poor. aPm Mckenzie MD [facility]
[2017-07-16 08:23] VITALS: BP 148/92; TEMP 98.4; O2SAT 100
[2017-07-16] MEDS: POLYETHYLENE GLYCOL 3350 17 GM/Dose PACKET PO SCH (10:01)
[2017-07-16] MEDS: Oxycodone/Acetaminophen 5/325 mg Tab PO PRN (10:07)
[2017-07-16 11:05] LABS: GRAN # 1.07 (1.4-6.5); GRAN % 50.5 % (50.0-68.0); HEMOGLOBIN 9.8 g/dL (12.0-16.0); LYMPH # 0.4 (1.2-3.4); LYMPH % 20.3 % (22.0-35.0); MEAN CELL VOLUME 101.3 fl (80.0-105.0); MEAN CORPUSCULAR HEMOGLOBIN 31.6 pg (25.0-35.0); MEAN CORPUSCULAR HGB CONC 31.2 g/dl (31.0-37.0); MONO # 0.6 (0.1-0.6); MONO % 29.2 % (1.0-6.0); PLATELET COUNT 52 [, 10^3/uL] (120.0-450.0); RED CELL DISTRIBUTION WIDTH 17.9 % (11.5-14.5)
[2017-07-16 11:09] LABS: WHITE BLOOD COUNT 2.1 [, 10^3/ul] (4.5-11.0)
--- NOTE | 2017-07-16 11:41 | CP.PCM.PN ---
Subjective - Date & Time of Evaluation Date of Evaluation: 07/16/17 Time of Evaluation: 11:37 - Subjective Subjective: Ms. Kennedy was seen and examined at the bedside. She is alert, oriented in all spheres. She denies any headache, dizziness, lightheadedness, blurred vision, nausea, or vomiting. She is able to answer questions appropriately and follow simple commands. There was no untoward events overnight. Objective - Vital Signs/Intake and Output Vital Signs (last 24 hours): Temp Pulse Resp BP Pulse Ox 98.4 F 49 L 20 148/92 H 100 07/16/17 08:23 07/16/17 08:23 07/16/17 08:23 07/16/17 08:23 07/16/17 08:23 Intake and Output: 07/16/17 07/16/17 06:59 18:59 Intake Total 1070 Output Total 400 Balance 670 - Medications Medications: Current Medications Acetaminophen (Tylenol 325mg Tab) 650 mg PO Q6H PRN PRN Reason: Fever >100.4 F Dexamethasone (Decadron) 4 mg PO BID [facility] Last Admin: 07/16/17 10:01 Dose: 4 mg Famotidine (Pepcid) 20 mg PO BID [facility] Last Admin: 07/16/17 10:01 Dose: 20 mg Sodium Chloride (Sodium Chloride 0.9%) 1,000 mls @ 50 mls/hr IV .Q20H [facility] Last Admin: 07/15/17 22:51 Dose: 50 mls/hr Insulin Human Regular (Humulin R Low) 0 units SC ACHS [facility] PRN Reason: Protocol Last Admin: 07/16/17 08:08 Dose: Not Given Levetiracetam (Keppra) 500 mg PO BID [facility] Nitroglycerin (Nitro-Bid 2% Oint) 1 ea TOP Q4H PRN PRN Reason: accelerated hypertension Ondansetron HCl (Zofran Inj) 4 mg IVP Q6H PRN PRN Reason: Nausea/Vomiting Oxycodone/Acetaminophen (Percocet 5/325 Mg Tab) 1 tab PO Q6H PRN PRN Reason: severe pain Stop: 07/16/17 18:16 Last Admin: 07/16/17 10:07 Dose: 1 tab Polyethylene Glycol (Miralax) 17 gm PO DAILY [facility] Last Admin: 07/16/17 10:01 Dose: 17 gm - Labs Labs: 07/16/17 10:50 07/15/17 07:00 - Constitutional Appears: No Acute Distress - Head Exam Head Exam: NORMAL INSPECTION - Neurological Exam Neurological Exam: Alert, Awake, Oriented x3 Neuro motor strength exam: Left Upper Extremity: 5, Right Upper Extremity: 5, Left Lower Extremity: 5, Right Lower Extremity: 5 Additional comments: Neurological unchanged from previous examination. Assessment and Plan (1) Acute encephalopathy Assessment & Plan: Case discussed with Dr. Hand, continue all current medical regimen. Recommend Keppra 500 mg PO BID for her brain mets. Cleared by neurology to be discharge. Recommend to follow up with her own neurologist or Dr. Barrera in 2 weeks. Status: Acute
[2017-07-16] MEDS ORDERED: levETIRAcetam 500 mg/5ml UD cups PO SCH (11:45)
[2017-07-16 14:03] VITALS: PULSE 50
--- NOTE | 2017-07-17 06:17 | EEG ---
EEG DATE: 07/16/2017 ATTENDING PHYSICIAN: Pam Mckenzie MD INTERPRETATION AND INDICATION: Rule out seizure. MEDICATIONS: Reviewed. TECHNICAL: This is a digitally recorded EEG using a 10-20 electrode placement system with 16 channels of scalp EEG. Included is another channel for EKG. The data is stored digitally and reviewed and reformed with montage for optimal display. DESCRIPTION: Normal posterior dominant rhythm is noted at 8 to 9 Hz that is reactive, symmetric and attenuating with eye opening. There are normal amount of drowsiness recorded with not much of delta and theta activity. There is no sleep recorded. There are no focal epileptiform discharges. There are no subclinical or clinical seizures. IMPRESSION: This is a normal awake and drowsy EEG. Clinical correlation is required. Katerin Hand MD
--- NOTE | 2017-07-17 19:08 | DS ---
FINAL DIAGNOSES: 1. Altered mental status, improved. 2. Metastatic breast cancer to brain, lung, bone; rule out seizure; chronic hypertension; pancytopenia secondary to recent chemotherapy. DISPOSITION: Home. FOLLOWUP: Follow up with her PMD, Dr. Neymar Pena, Oncology, in 48 hours. Follow up with Dr. Mahoney, radiation oncologist, for daily outpatient radiotherapy. DISCHARGE MEDICATIONS: Norvasc 5 mg p.o. daily, MiraLAX 17 gm p.o. daily, Pepcid 20 mg p.o. b.i.d., Decadron 4 mg p.o. b.i.d. to complete full 10-day course, Keppra 500 mg p.o. b.i.d. SUMMARY: This 52-year-old female while attending outpatient radiation therapy under the direction of her radiation oncologist, Dr. Mahoney, for newly diagnosed brain mets in the setting of metastatic breast cancer to the brain, bone and lung, was admitted, and seen in consultation by Hematology and Neurology, and felt to have altered mental status secondary to possible brain mets, now undergoing treatment with oral Decadron and radiotherapy as well as pancytopenia secondary to recently completed chemotherapy as well as a possible seizure syndrome. At the time of this dictation, the patient had an EEG done that will be read by Dr. Edgard Barrera, who recommended discharged on Keppra 500 mg p.o. b.i.d. The patient was ambulated with physical therapy. She was deemed safe for staircase safety and at the time of discharge, temperature was 98.4, respirations 20, pulse 65, and blood pressure 148/92 with a pulse ox of 100%. LABORATORY DATA: Discharge labs show white count 2100, hemoglobin 9.8, hematocrit 31.4, platelets 52,000. Sodium 142, K 4.1, chloride 110, bicarb 25, BUN 12, creatinine 0.5, calcium 8.7 and random blood sugar 84. Urinalysis was unremarkable. RPR serology was negative. Blood and urine cultures were unremarkable and brain MRI was consistent with known metastatic breast cancer to brain showing signs of improving lesions in the setting of chemo and radiation therapy. The patient is discharged to home. She will follow up with Dr. Pena. He is aware of her pancytopenia and has cleared her for discharge. The patient will discuss the duration of Keppra with PMD and has been advised to follow up with Dr. Barrera, neurologist, as well. All of the above was discussed in detail. Greater than 35 minutes was spent in the care of management, review of x-rays, labs, and medication with this patient and her nurse, Lisha Diggs. All questions were answered. Pam Mckenzie MD [facility]
== END 2017-07-16 14:44 | disposition home or self-care (01) | DRG 71 ==
LOC: ED 13:09 → ERH 18:00 → 3RNO 20:04
PROVIDERS: ADMIT Internal Medicine; ATTEND Internal Medicine
DX: G93.41 Metabolic encephalopathy (principal); C79.31 Secondary malignant neoplasm of brain; D61.818 Other pancytopenia; C78.00 Secondary malignant neoplasm of unspecified lung; C79.51 Secondary malignant neoplasm of bone; M48.52XA Collapsed vertebra, not elsewhere classified, cervical region, initial encounter for fracture; C50.912 Malignant neoplasm of unspecified site of left female breast; T45.1X5A Adverse effect of antineoplastic and immunosuppressive drugs, initial encounter; I10 Essential (primary) hypertension; K21.9 Gastro-esophageal reflux disease without esophagitis; Z90.12 Acquired absence of left breast and nipple